=== PATIENT | male | born 1955 | race Caucasian/White ===

== ENCOUNTER → 2016-03-29 | Outpatient (CLI) | payer BC ==
[~2016-03-29] MED LIST: ALBU18002 INH; ASPI-435 PO; CETI10TA84 PO; CLBPO15 TOP; COEN150C PO; COLE1TAB PO; DICL-201 PO; DICL1GEL12 TOP; EPP3/2 IM; EZET10TA63 PO; FLUT0.15 NAE; FLVHFA110 INH; LORA-741 PO; LOSA1TAB38 PO; METO1TAB69 PO; MISC1CAP58 PO; MULT-506 PO; NTRGSL/4 UT; OMEG10007 PO; PSEU60TA80 PO; RANI150T3 PO; ROSU40TA PO; VALA1TAB2 PO; [UNRECOGNIZED DRUG - CODE] PO
--- NOTE | 2016-03-29 11:09 | DIAGNOSTIC IMAGING REPORT ---
RIGHT KNEE 4 VIEWS INCLUDING BILATERAL STANDING AP VIEWS CLINICAL HISTORY: Right knee pain COMPARISON: None. DISCUSSION: The standing AP views reveal marked narrowing of the medial joint compartment of the right knee and moderate narrowing of the medial joint compartment of the left knee. No acute fractures are visualized. There are dorsal patellar spurs. No destructive lesions are evident. There is no evidence of significant joint effusion. IMPRESSION: 1. No acute fractures 2. Moderately advanced osteoarthritic changes. Electronically signed by: Jefferson Penaloza M.D. 03/29/2016 11:08 AM Dictated Date/Time: 03/29/2016 11:06 AM
== END | disposition home or self-care (01) ==
LOC: C.RDSM 13:42
PROVIDERS: ATTEND Physical Medicine & Rehabilitation Sports Medicine
DX: M25.561 Pain in right knee (principal); M17.31 Unilateral post-traumatic osteoarthritis, right knee

== ENCOUNTER → 2016-04-11 | Outpatient (CLI) | payer BC ==
--- NOTE | 2016-04-12 06:36 | SPLIT NIGHT TECHNICIAN REPORT ---
[facility] Split Night Polysomnogram - Surveillance Inspector Report Study date: 04/11/2016 Referring Physician: Savanna BARON M.D. Name: ROBYN KUNZ Surveillance Inspector: ELIANA Kaye. Date of : 1955 Height: 60 years, Height 5' 2" Sex: Male Weight: 272 lbs Age: 60 Neck Circum: 18.5 inches BMI: Medications: 49.74 COLESTIPOL HCL 1 G, TOPROL XL 100 MG, CRESTOR 40 MG, DIOVAN 160 MG, FLOVENT HFA 110 MCG/ACT, AUTOINJECTOR 0.3 MG, FLONASE 50 MCG/ACT, ZETIA 10 MG, ZANTAC 150 MG, NITROSTAT 0.4 MG, VOLTAREN 75 MG, ATIVAN 1 MG, CO Q10 100 MG, PROAIR HFA 108 (90) BASE, VALTREX 1 G, ASPIRIN 81 MG, Patient History PATIENT HAD A SLEEP STUDY DONE IN 2004 AND WAS POSITIVE FOR CASH WITH AN AHI OF 22.8/HR. PATIENT WAS SETUP ON CPAP/BIPAP BUT WAS NOT ABLE TO TOLERATE THERAPY. HE ALSO HAS HISTORY OF INSOMNIA. HE IS HERE TODAY FOR A SPLIT-STUDY. ESS = 4 RM 6 Parameters Monitored NPSG: E1-M2, E2-M1, Fp1-M2, Fp2-M1, F3-M2, F4-M2, F4-M1, C3-M2, C4-M2, C4-M1, O1-M2, O2-M2, O2-M1, T3-M2, T4-M1, P3-M2, P4-M1, CHIN1, CHIN2, HR, EKG, Legs, PFLOW, SNOR, FLOW, CFLOW, Tidal Volume, THOR, ABDO, SpO2, PLTH, CPRESS, ETCO2 Wave, ETCO2, pH SLEEP SUMMARY DATA DIAGNOSTIC TREATMENT Lights Out: 10:00:28 PM 1:22:58 AM Lights On: 1:14:58 AM 5:48:58 AM Total Recording Time (TRT): 195.0 min. 266.5 min. Total Sleep Time (TST): 121.5 min. 206.0 min. NREM Time: 120.5 min. 120.0 min. REM Time: 1.0 min. 86.0 min. Sleep Period Time (SPT): 173.5 min. 241.5 min. Sleep Efficiency (SE): 62 % 77 % Sleep Latency: 21.0 min. 6.5 min. Arousal Index: 30.1 9.3 PAP Treatment Levels: 4, 5, 6, 7, 8, 9 * Optimal Pressure(s) SLEEP STAGING DATA DIAGNOSTIC TREATMENT Duration (min) TST % Duration (min) TST % Stage Wake: 73.0 min. -- 60.5 min. -- WASO: 52.0 min. -- 35.5 min. -- NREM: 120.5 min. 99 % 120.0 min. 58 % Stage N1: 11.0 min. 9 % 16.5 min. 8 % Stage N2: 96.5 min. 79 % 65.5 min. 32 % Stage N3: 13.0 min. 11 % 38.0 min. 18 % REM: 1.0 min. 1 % 86.0 min. 42 % POSITIONAL DATA Event Count Index Event Count Index Supine: 128 100.1 31 11.9 Supine NREM: 128 100.1 24 13.0 Supine REM: N/A N/A 7 9 Non-Supine: 42 56.2 7 8.5 Non-Supine NREM: 41 56.2 1 6.3 Non-Supine REM: 1 60.0 6 9.0 AROUSAL SUMMARY DATA: Event Count Index Event Count Index Apnea Arousals: 12 25.7 14 6.4 Hypopnea Arousals: 14 6.9 1 0.3 Snore Arousals: 14 6.9 6 1.7 PLM Arousals: 2 1.0 0 0.0 Non-Specific Arousals: 17 8.4 11 3.2 Total Arousals: 61 30.1 32 9.3 MYOCLONUS (PLM) Event Count Index Event Count Index PLM: 8 4.0 61 17.8 PLM AROUSAL: 2 1.0 0 0.0 PLM W/O AROUSAL 8 4.0 61 17.8 PLM W/RESP EVENT 1 0.0 0 0.0 MYOCLONUS (PLM) Event Count Index Event Count Index LM: 5 17.3 13 3.8 LM AROUSAL: 5 2.5 1 0.3 LM W/O AROUSAL LM W/RESP EVENT LM NON SPECIFIC 27 13.3 73 21.3 HEART RATE DATA DIAGNOSTIC TREATMENT Sleep (bpm): 58 54 REM (bpm): 90 92 NREM (bpm): 92 93 Tachycardia Count: 0 0 Tachycardia Duration: 0.00 0 Bradycardia Count: 0 0 Bradycardia Duration: 0.00 0 DIAGNOSTIC PORTION TREATMENT PORTION RESPIRATORY DATA Event Count Index Event Count Index AHI: -- 84.0 -- 11.1 RDI: -- 84.0 -- 11 Obstructive Apnea: 47 23.2 0 0.0 Central Apnea: 2 1.0 22 6.4 Mixed Apnea: 3 1.5 0 0.0 Hypopnea: 118 58.3 16 4.7 RERA: 0 0.0 0 0.0 Total Apneas: 52 25.7 22 6.4 RESPIRATORY DATA REM NREM SLEEP REM NREM SLEEP Supine Position: Obstructive Apneas: N/A 36 36 0 0 0 Central Apneas: N/A 1 1 0 22 22 Mixed Apneas: N/A 2 2 0 0 0 Hypopneas: N/A 89 89 7 2 9 RERA N/A 0 0 0 0 0 Total Supine Events: N/A 128 128 7 24 31 Supine AHI: N/A 100.1 100.1 9 13.0 11.9 Supine RDI: N/A 100.1 100.1 9.1 13.0 11.9 REM NREM SLEEP REM NREM SLEEP Non-Supine Position: Obstructive Apneas: 0 11 11 0 0 0 Central Apneas: 1 0 1 0 0 0 Mixed Apneas: 0 1 1 0 0 0 Hypopneas: 0 29 29 6 1 7 RERA 0 0 0 0 0 0 Total Supine Events: 1 41 42 6 1 7 Supine AHI: 60.0 56.2 56.2 9.0 6.3 8.5 Supine RDI: 60.0 56.2 56.2 9.0 6.3 8.5 OXYGEN DESTAURATION DATA: Event Count Index Event Count Index REM Desaturations: 0 0.0 14 9.8 NREM Desaturations: 159 79.2 21 10.5 SNORE DATA DIAGNOSTIC TREATMENT Snore Time: 15.6 1:29:28 AM Snore TST%: 6 1 Snore Arousal Count: 14 6 Snore Arousal Index: 6.9 1.7 Desaturation Event Summary: Minimum %SpO2 Event Count Mean/Min/Max Duration(sec.) Desaturation Index % Time In Bed > 90 245 21.6 / 7.5 / 73.7 39.9 81.7 86 - 90 18 17.8 / 8.8 / 32.8 13.2 18.1 81 - 85 0 N/A 0.0 0.1 76 - 80 0 N/A 0.0 0.0 71 - 75 0 N/A 0.0 0.0 66 - 70 0 N/A 0.0 0.0 61 - 65 0 N/A 0.0 0.0 56 - 60 0 N/A 0.0 0.0 51 - 55 0 N/A 0.0 0.0 < 50 0 N/A 0.0 0.0 OXYGEN SATURATION DATA DIAGNOSTIC TREATMENT SpO2 Mean Sleep: 92 % 92 % SpO2 Mean REM: 90 % 92 % SpO2 Mean NREM: 92 % 93 % SpO2 Minimum Sleep: 86 % 85 % SpO2 Minimum REM: 89 % 86 % SpO2 Minimum NREM: 86 % 85 % Time Below 90% (TST): 17.2 7.7 Time Below 88% (TST): 1.2 1.1 Total REM NREM Awake <50% 0.0 min. 0.0 min. 0.0 min. 0.0 min. 51 - 60% 0.0 min. 0.0 min. 0.0 min. 0.0 min. 61 - 70% 0.0 min. 0.0 min. 0.0 min. 0.0 min. 71 - 80% 0.2 min. 0.0 min. 0.0 min. 0.2 min. 81 - 90% 82.1 min. 14.0 min. 47.0 min. 21.2 min. 91 - 100% 368.0 min. 73.0 min. 193.3 min. 101.7 min. Average 92 92 92 93 Minimum SpO2 75 86 85 75 Desaturation Event Index 32.3 9.7 44.9 25.3 # Desat. Events below 89% 89 6 58 25 Time(%) with Saturation below 89% 3.4 0.4 1.8 1.3 Time(min.) with Saturation below 89% 15.5 1.7 7.9 5.9 Recording Surveillance Inspector Comments: Mr. Kunz slept in the supine and left positions. PVC's and PAC's noted. Leg movements noted. No bruxism noted. Snoring was noted and scored as a 2 on a scale of 1 through 5. (0=no snoring, 5=snoring loud enough to be heard through a closed door or down the eric way) At 1:14 am Mr. Kunz has met specific Split-Night criteria during the diagnostic portion of this study. CPAP was initiated at +4 CMH2O and up-titrated to an optimal level of +9 CMH2O, which nearly eliminated all respiratory events and snoring. A Resmed Elena FX nasal pillows size small mask was used during titration Mr. Kunz awoke to use the restroom 1 time during the night. Mr. Kunz stated I slept as well as I do when I am in my own bed. The final report will be interpreted and signed by a sleep physician. The completed physician report will then be placed in the patient medical record. Therapy Event: Therapy (cm H20) 0 4 5 6 7 8 9 Total Time at Pressure (min.) 194.5 36.4 9.8 11.8 39.2 91.5 77.2 TST at Pressure (min.) 121.5 9.9 6.3 3.8 39.2 88.5 58.2 # Periods 1 1 1 1 1 1 1 Sleep Onset (min.) 21.0 6.5 0.0 0.0 0.0 0.0 0.0 REM Onset (min.) 130.0 N/A N/A N/A 6.0 0.0 0.0 Sleep Efficiency % 62 27 64 32 100 96 75 Wakefulness (%) 37.5 72.7 35.7 67.7 0.0 3.3 24.6 Wakefulness (min.) 73.0 26.5 3.5 8.0 0.0 3.0 19.0 NREM 1 (%) 5.7 24.7 30.6 8.5 0.0 2.7 1.3 NREM 1 (min.) 11.0 9.0 3.0 1.0 0.0 2.5 1.0 NREM 2 (%) 49.6 2.6 33.7 23.8 15.2 32.2 29.8 NREM 2 (min.) 96.5 0.9 3.3 2.8 6.0 29.5 23.0 NREM 3 (%) 6.7 0.0 0.0 0.0 0.0 35.0 7.8 NREM 3 (min.) 13.0 0.0 0.0 0.0 0.0 32.0 6.0 REM (%) 0.5 0.0 0.0 0.0 84.8 26.8 36.5 REM (min.) 1.0 0.0 0.0 0.0 33.3 24.5 28.2 # Arousals 61 10 6 2 0 7 7 Arousal Index 30.1 60.4 57.1 31.5 0.0 4.7 7.2 # Snore 878 2 2 0 11 64 23 Snore Index 433.6 12.1 19.0 0.0 16.8 43.4 23.7 AHI 84.0 84.6 85.7 15.8 9.2 4.1 2.1 AHI Supine 100.1 84.6 85.7 0.0 N/A 4.4 2.1 AHI Non-Supine 56.2 N/A N/A 16.9 9.2 0.0 N/A NREM AHI 84.1 84.6 85.7 15.8 0.0 0.0 2.0 REM AHI 60.0 N/A N/A N/A 10.8 14.7 2.1 RDI 84.0 84.6 85.7 15.8 9.2 4.1 2.1 # Obstructive 47 0 0 0 0 0 0 # Central Ap 2 14 8 0 0 0 0 # Mixed 3 0 0 0 0 0 0 # Hypopneas 118 0 1 1 6 6 2 RERAS 0 0 0 0 0 0 0 Total Respiratory Events 170 14 9 1 6 6 2 Time Below SpO2 89.00% (min.) 6.4 0.6 1.0 0.0 0.9 0.8 0.0 Mean NREM SpO2 (%) 92 93 92 91 91 92 94 Mean REM SpO2 (%) 90 N/A N/A N/A 91 92 93 Mean Sleep SpO2 (%) 92 93 92 91 91 92 94 Min NREM SpO2 (%) 86 85 85 89 90 90 92 Min REM SpO2 (%) 89 N/A N/A N/A 86 88 91 Position Supine (min.) 76.7 9.9 6.3 0.3 0.0 81.8 58.2 Position Non-supine (min.) 44.8 0.0 0.0 3.5 39.2 6.7 0.0 LM Index Sleep 21.2 0.0 0.0 0.0 3.1 46.1 4.1 LM Index NREM 21.4 0.0 0.0 0.0 10.1 59.1 0.0 LM Index REM 0.0 N/A N/A N/A 1.8 12.2 8.5 Mean Heart Rate (bpm) 58 54 54 52 58 54 53 Min Heart Rate (bpm) 49 51 50 50 51 49 49
--- NOTE | 2016-04-26 16:55 | POLYSOMNOGRAPH REPORT ---
REFERRING PERSON: Dr. Christine Jean. STRAW HAT WASHER OPERATOR: Donato Cuevas. Mr. Kunz is a 60-year-old male who has previously been diagnosed with obstructive sleep apnea. In 2004, his AHI was 22.8. He was set up on CPAP, but was unable to tolerate therapy. He has a history of continued snoring and insomnia. He is sent to the sleep lab for a split night sleep study. [place] Sleepiness Scale score on the evening of this study is 4. BMI is 49.74. Following the technical and digital specifications of the [employer] (AASM) a standard diagnostic polysomnogram was performed monitoring EEG, EOG, EMG (chin and leg deviations), oxygen saturation, body position, digital video, respiratory effort and airflow. The sleep Stage and event scoring was based on the AASM Manual for the Scoring of Sleep and Associated Events 2007 edition. Apneas are defined as a drop in the peak thermal sensor excursion by >90% of baseline for at least 10 seconds. Hypopneas were scored using the 4% oxygen desaturation rule (4A-[employer]ic[employer]) and a decrease in the nasal pressure excursions by >30% of baseline for at least 10 seconds. Respiratory effort-related arousal (RERA's) is defined as a sequence of breaths lasting at least 10 seconds characterized by increasing respiratory effort or flattening of the nasal pressure waveform leading to an arousal from sleep when the sequence of breaths does not meet criteria for an apnea or hypopnea. Apnea Hypopnea index (AHI) is defined as the number of apneas and hypopneas occurring in an hour of sleep. Respiratory disturbance index (RDI) is defined as the number of apneas, hypopneas, and RERA's occurring in an hour of sleep. Mr. Kunz did in fact qualify for a split night sleep study. He was observed for 121.5 minutes of sleep time. During that time, he had 9% N1 sleep, 79% N2 sleep, 11% N3 sleep, and 1% REM sleep. There were 61 cortical arousals from sleep. 17 of these arousals were nonspecific, 2 were due to periodic limb movements of sleep and 14 were due to snoring and the remaining 26 were due to respiratory events. There were 8 periodic limb movements during observation, 2 of which resulted in arousals. Mean saturation during observation was 92% with desaturations to 86% with a respiratory event. There were 47 obstructive apneas, 2 central apneas and 3 mixed apneas during the diagnostic portion of this test. Additionally, there were 118 hypopneas. Apnea-hypopnea index was 84 consistent with very severe sleep apnea. Therefore, at 1:15 a.m., this patient was started on CPAP therapy. He chose a small FX nasal pillow mask for his titration. He was titrated from a CPAP pressure of 4 to a CPAP pressure of 9 over the remainder of the night. Increasing pressures prevented apneas, hypopneas and arousals. A positive airway pressure did initially caused central apneas in this patient, but as pressures were increased these abated. He was observed on a pressure of 9 for 58.2 minutes of sleep time. During that time, the patient did have 28.2 minutes of REM sleep, some of which was supine REM. AHI and RDI were both 2.1 and there were no desaturations less than 89%. IMPRESSION AND PLAN: Successful split night sleep study in this patient with very severe sleep apnea. I would recommend that he be started on CPAP at a pressure of 9. A download from his machine can be reviewed in 1 month both to check compliance as well as apnea-hypopnea index and further pressure adjustments can occur at that time.
== END | disposition home or self-care (01) ==
LOC: C.NEUR 21:00
PROVIDERS: ATTEND Family Medicine
DX: G47.33 Obstructive sleep apnea (adult) (pediatric) (principal); E66.2 Morbid (severe) obesity with alveolar hypoventilation; R06.83 Snoring; R06.81 Apnea, not elsewhere classified

== ENCOUNTER → 2016-09-03 | Outpatient (CLI) | payer BC ==
--- NOTE | 2016-09-03 10:22 | DIAGNOSTIC IMAGING REPORT ---
RIGHT SHOULDER MIN 2 VIEWS CLINICAL HISTORY: Right shoulder pain. COMPARISON: Right shoulder radiographs July 15, 2008. FINDINGS: Alignment of the right shoulder is anatomic. There is no fracture or suspicious lesion. Mild arthritis is noted involving the glenohumeral and acromioclavicular joints. There is a possible previous distal right clavicular resection. IMPRESSION: 1. No acute fracture. 2. Mild osteoarthritis of the right acromioclavicular and glenohumeral joints. Electronically signed by: Porfirio Kaiser M.D. 09/03/2016 10:21 AM Dictated Date/Time: 09/03/2016 10:20 AM
== END | disposition home or self-care (01) ==
LOC: C.RDSM 13:20
PROVIDERS: ATTEND Physician Assistant
DX: M19.011 Primary osteoarthritis, right shoulder (principal)

== ENCOUNTER → 2016-10-25 | Outpatient (CLI) | payer BC ==
[~2016-10-25] MED LIST changes: +GADAVIST IV PRN
--- NOTE | 2016-10-25 10:27 | DIAGNOSTIC IMAGING REPORT ---
FLUOROSCOPICALLY GUIDED RIGHT SHOULDER ARTHROGRAM PRIOR TO MRI CLINICAL HISTORY: Right shoulder pain. FLUOROSCOPY TIME: 16 seconds. PROCEDURE: The procedure, risks and benefits were discussed with the patient and informed written consent was obtained. The procedure was performed by Dr. Kaiser following a timeout. Skin overlying the right glenohumeral joint was prepped and draped in sterile fashion and local anesthesia was achieved with 1% lidocaine. Under intermittent fluoroscopic guidance, a 3 1/2 inch 22-gauge needle was directed into the right glenohumeral joint. Positioning within the joint space was confirmed with injection of a small amount of contrast. At this time, 11 cc of a mixture of 0.1 cc of gadolinium, 10 cc of normal saline and 10 cc of Optiray 300 was injected into the right glenohumeral joint. The needle was removed. The patient tolerated the procedure well and no immediate complications were evident. The patient was transported to MRI. IMPRESSION: Fluoroscopically guided right shoulder arthrogram prior to MRI. Electronically signed by: Porfirio Kaiser M.D. 10/25/2016 10:26 AM Dictated Date/Time: 10/25/2016 10:24 AM
--- NOTE | 2016-10-25 11:33 | DIAGNOSTIC IMAGING REPORT ---
RIGHT UPPER EXTREMITY JOINT W/ CLINICAL HISTORY: RIGHT SHOULDER PAIN Right pain TECHNIQUE: Multiaxial MRI acquisition post contrast arthrography COMPARISON STUDY: None FINDINGS: Signal characteristics of the osseous structures appear unremarkable. Moderate degenerative change of the acromioclavicular joint is present. There is moderate degenerative change of the glenohumeral joint. There is mild superior migration of the humeral shaft in relation to the acromion. There is a full-thickness tear of the supraspinatus tendon. Musculotendinous retraction of 3 cm is present. The infraspinatus tendon is intact. There is a small partial thickness tear of the subscapularis tendon. Glenoid labrum shows evidence for moderate degenerative substance loss throughout. There is no evidence for an acute labral tear. IMPRESSION: 1. Full-thickness tear supraspinatus tendon with musculotendinous retraction of 3 cm. 2. Small partial thickness tear subscapularis tendon. 3. Moderate degenerative substance change of the glenoid labrum with no acute labral tear. The above report was generated using voice recognition software. It may contain grammatical, syntax or spelling errors. Electronically signed by: Wai Barbosa M.D. 10/25/2016 11:32 AM Dictated Date/Time: 10/25/2016 11:27 AM
== END | disposition home or self-care (01) ==
LOC: C.MRIBC 09:31
PROVIDERS: ATTEND Physician Assistant
DX: M25.511 Pain in right shoulder (principal); S46.801A Unspecified injury of other muscles, fascia and tendons at shoulder and upper arm level, right arm, initial encounter; X58.XXXA Exposure to other specified factors, initial encounter; M19.011 Primary osteoarthritis, right shoulder

== ENCOUNTER → 2016-12-17 | Outpatient (CLI) | payer BC ==
[~2016-12-17] MED LIST changes: -COEN150C PO; +DVN/160 PO; -GADAVIST IV PRN; -LOSA1TAB38 PO; +METO100T44 PO; -METO1TAB69 PO; -MISC1CAP58 PO; -OMEG10007 PO; +OPTIRAY 320 IV PRN; -[UNRECOGNIZED DRUG - CODE] PO
--- NOTE | 2016-12-17 08:21 | DIAGNOSTIC IMAGING REPORT ---
CT SCAN OF THE CHEST WITH IV CONTRAST CLINICAL HISTORY: Abnormal chest x-ray. COMPARISON STUDY: Chest regressed dated 12/09/2016. TECHNIQUE: Following the IV administration of 109 cc of Optiray 320, CT scan of the thorax was performed from the thoracic inlet to the upper abdomen. Images are reviewed in the axial, sagittal, and coronal planes. IV contrast was administered without complication. A dose lowering technique was utilized adhering to the principles of ALARA. The examination is degraded by streak artifact from the right arm which could not be elevated above the chest. CT DOSE: 1192.63 mGy.cm FINDINGS: Thyroid: The right lobe of the thyroid gland is enlarged and heterogeneous. Low-attenuation nodules measure up to 2 cm. Thoracic aorta: There is atherosclerotic calcification of the thoracic aorta is normal in caliber and demonstrates bovine variant arch anatomy. No dissection is seen. Pulmonary vasculature: The pulmonary trunk is normal in caliber. There are no filling defects identified in the central pulmonary vessels to indicate pulmonary embolus. Note that this examination was not protocoled for evaluation of the pulmonary arteries. Heart: The heart is top normal in size and without pericardial effusion. There are coronary artery calcifications. Lungs and pleural spaces: There is no airspace consolidation or pleural effusion. The trachea and central airways are clear. There is a 7 mm left lower lobe nodule seen image #174. This likely corresponds to the radiographic the. A 6 mm pleural-based nodule is seen in the right lower lobe along the major fissure on image #125. Scattered calcified granulomas are identified. Mediastinum: There are scattered subcentimeter mediastinal lymph nodes. These are not pathologically enlarged by size criteria. Taylor: Clear. Axillae: There is no axillary lymphadenopathy. Upper abdomen: The liver is enlarged and steatotic. Partially visualized upper abdominal viscera is otherwise within normal limits. Skeletal structures: The skeletal structures are osteopenic. A hemangioma is noted in the body of T9. No lytic or blastic bony lesions are seen. IMPRESSION: 1. There is an indeterminant 7 mm left lower lobe pulmonary nodule, which likely corresponds to the radiographic abnormality seen on 12/09/2016. Follow-up as per the Fleischner criteria is recommended. See below. 2. An additional 6 mm pleural-based nodule is seen in the right lower lobe. This can also be reassessed at follow-up. 3. There is no airspace consolidation or pleural effusion. 4. Hepatomegaly and hepatic steatosis. 5. The thyroid gland is enlarged and multinodular. Follow-up with a dedicated thyroid ultrasound is recommended. Please refer to below summary of Fleischner criteria recommendations for follow-up of incidental CT nodules (Meliton Bernstein, Guidelines for management of small pulmonary nodules detected on CT scans: A statement from the Fleischner Society, Radiology 237: [phone].) SOLID NODULES Solitary nodule size: <6 mm * low risk patients: no follow-up needed * high risk patients: optional CT at 12 months Solitary nodule size: 6-8 mm * low risk patients: follow-up at 6-12 months, then consider further follow-up at 18-24 months * high risk patients: initial follow-up CT at 6-12 months and then at 18-24 months if no change Solitary nodule size: >8 mm * either low or high risk patients - consider follow-up CT at 3 months, and/or CT-PET, and/or biopsy Multiple nodules size: <6 mm * low risk patients: no routine follow-up * high risk patients: optional CT at 12 months Multiple nodules size: 6-8 mm * low risk patients: follow-up at 3-6 months, then consider further follow-up at 18-24 months * high risk patients: follow-up at 3-6 months, then at 18-24 months if no change Multiple nodules size: >8 mm * low risk patients: follow-up at 3-6 months, then consider further follow-up at 18-24 months * high risk patients: follow-up at 3-6 months, then at 18-24 months if no change Note: newly detected indeterminate nodule in persons 35 years of age or older. * low risk patients: minimal or absent history of smoking and/or other known risk factors * high risk patients: history of smoking or of other known risk factors (e.g. first degree relative with lung cancer, or exposure to asbestos, radon, uranium) * if a nodule up to 8 mm is partly solid or is ground glass further follow-up is required after 24 months to exclude possible slow growing adenocarcinoma (MAGALYS) SUBSOLID NODULES Solitary pure ground-glass nodule * nodule size <6 mm - no CT follow-up required * nodule size >=6 mm - follow-up CT at 6-12 months, then every 2 years until 5 years Solitary part-solid nodule * nodule size <6 mm - no CT follow-up required * nodule size >=6 mm - follow-up CT at 3-6 months. If unchanged, and solid component remains <6 mm, then annual follow-up for 5 years Multiple subsolid nodules * nodule size <6 mm - follow-up CT at 3-6 months, consider further follow-up at 2 and 4 years if stable * nodule size >=6 mm - follow-up CT at 3-6 months, subsequent management based on the most suspicious nodule(s) Electronically signed by: Ector Oquendo M.D. 12/17/2016 8:19 AM Dictated Date/Time: 12/17/2016 8:13 AM
== END | disposition home or self-care (01) ==
LOC: C.CTS 07:33
PROVIDERS: ATTEND Family Medicine
DX: R93.8 Abnormal findings on diagnostic imaging of other specified body structures (principal); R91.8 Other nonspecific abnormal finding of lung field; E04.2 Nontoxic multinodular goiter

== ENCOUNTER 2017-01-13 06:33 | Day surgery (SDC) | payer BC ==
[2016-11-23 12:31] VITALS: BMI 47.0
[2016-12-08 08:44] VITALS: BMI 48.0
--- NOTE | 2016-12-08 08:49 | PAT Medication Instructions ---
Service Date Dec 08, 2016. Current Home Medication List Albuterol Sulfate (Proair Respiclick), 2 PUFFS INH BID Aspirin (Aspirin 81), 1 TAB PO HS Cetirizine (Zyrtec), 10 MG PO QAM Clobetasol Propionate (Clobetasol Propionate), 1 APPLN TOP BID PRN for DRY SKIN Colestipol Hcl (Colestid), 2 TAB PO BID Diclofenac (Voltaren), 75 MG PO BID PRN for Pain Diclofenac Sodium (Topical) (Voltaren 1% Top Gel), 1 APPL TOP UD PRN for Pain Epinephrine (Epipen), 0.3 MG IM UD PRN for ALLERGIES Ezetimibe (Zetia), 10 MG PO HS Fluticasone Propionate (Flovent Hfa), 2 PUFFS INH BID Fluticasone Propionate (Nasal) (Flonase Allergy Relief), 2 SPRAY QUINTON QAM Lorazepam (Ativan), 0.5 MG PO UD PRN for PRIOR TO DENTAL PROCEDURES Metoprolol Succ (Toprol Xl) (Toprol-Xl ), 100 MG PO HS Multivitamin (Multivitamin), 1 TAB PO QAM Nitroglycerin (Nitrostat), 0.4 MG UT PRN PRN for Chest Pain Pseudoephedrine-Guaifenesin (Mucinex D), 1 TAB PO BID PRN for ALLERGIES Ranitidine Hcl (Zantac), 150 MG PO BID Rosuvastatin Calcium (Crestor), 40 MG PO HS Valacyclovir Hcl (Valtrex), 2 TAB PO UD PRN for OUTBREAK' Valsartan (Diovan), 160 MG PO HS Medication Instructions For Your Scheduled Surgery - Check with surgeon for instructions: Aspirin (Aspirin 81), 1 TAB PO HS - Check with surgeon for instructions: Diclofenac (Voltaren), 75 MG PO BID PRN for Pain Clobetasol Propionate (Clobetasol Propionate), 1 APPLN TOP BID PRN for DRY SKIN - Hold the following medications 24 hours prior to surgery: Valsartan (Diovan), 160 MG PO HS Colestipol Hcl (Colestid), 2 TAB PO BID Diclofenac Sodium (Topical) (Voltaren 1% Top Gel), 1 APPL TOP UD PRN for Pain Clobetasol Propionate (Clobetasol Propionate), 1 APPLN TOP BID PRN for DRY SKIN - Hold the following medications the morning of surgery: Ranitidine Hcl (Zantac), 150 MG PO BID Pseudoephedrine-Guaifenesin (Mucinex D), 1 TAB PO BID PRN for ALLERGIES Multivitamin (Multivitamin), 1 TAB PO QAM Lorazepam (Ativan), 0.5 MG PO UD PRN for PRIOR TO DENTAL PROCEDURES Cetirizine (Zyrtec), 10 MG PO QAM - Take the following medications the morning of surgery with a sip of water: Valacyclovir Hcl (Valtrex), 2 TAB PO UD PRN for OUTBREAK' (if needed) Nitroglycerin (Nitrostat), 0.4 MG UT PRN PRN for Chest Pain (if needed) Fluticasone Propionate (Flovent Hfa), 2 PUFFS INH BID Fluticasone Propionate (Nasal) (Flonase Allergy Relief), 2 SPRAY QUINTON QAM Epinephrine (Epipen), 0.3 MG IM UD PRN for ALLERGIES (if needed) Albuterol Sulfate (Proair Respiclick), 2 PUFFS INH BID - Take the following medications as scheduled the night before surgery: Valacyclovir Hcl (Valtrex), 2 TAB PO UD PRN for OUTBREAK' (if needed) Ranitidine Hcl (Zantac), 150 MG PO BID Rosuvastatin Calcium (Crestor), 40 MG PO HS Pseudoephedrine-Guaifenesin (Mucinex D), 1 TAB PO BID PRN for ALLERGIES (if needed) Nitroglycerin (Nitrostat), 0.4 MG UT PRN PRN for Chest Pain (if needed) Lorazepam (Ativan), 0.5 MG PO UD PRN for PRIOR TO DENTAL PROCEDURES (if needed) Metoprolol Succ (Toprol Xl) (Toprol-Xl ), 100 MG PO HS Fluticasone Propionate (Flovent Hfa), 2 PUFFS INH BID' Ezetimibe (Zetia), 10 MG PO HS Epinephrine (Epipen), 0.3 MG IM UD PRN for ALLERGIES (if needed) Albuterol Sulfate (Proair Respiclick), 2 PUFFS INH BID If you have any questions please call us at [phone] or [phone] or [phone]
[2016-12-08 09:37] LABS: MEAN CELL VOLUME 85.7 fL (80-100); MEAN CORPUSCULAR HEMOGLOBIN 28.6 pg (25-34); MEAN CORPUSCULAR HGB CONC 33.3 g/dl (32-36); MEAN PLATELET VOLUME 10.8 fL (7.4-10.4); PLATELET COUNT 191 K/uL (130-400); WHITE BLOOD COUNT 5.67 K/uL (4.8-10.8)
[2016-12-08 09:48] LABS: PROTHROMBIN TIME (PATIENT) 11.1 SECONDS (9.0-12.0)
--- NOTE | 2016-12-08 09:54 | DIAGNOSTIC IMAGING REPORT ---
CHEST PREADMISSION(PA/LAT) CLINICAL HISTORY: Preoperative chest COMPARISON STUDY: No previous studies for comparison. FINDINGS: The cardiac and mediastinal contours are normal. There is no focal pulmonary consolidation. There is no failure. There are no pleural effusions. There is a subtle 9 mm nodular opacity at the left lung base. This potentially represents a nipple shadow. A repeat study with nipple markers is recommended.[ IMPRESSION: 9 mm left lower lung zone nodule versus nipple shadow. A repeat study with nipple markers and shallow obliques is recommended. Electronically signed by: Jefferson Penaloza M.D. 12/08/2016 9:53 AM Dictated Date/Time: 12/08/2016 9:51 AM
[2017-01-05 09:06] VITALS: BMI 48.0
--- NOTE | 2017-01-06 11:50 | HISTORY & PHYSICAL EXAMINATION ---
DATE OF ADMISSION: 01/13/2017 CHIEF COMPLAINT: Right shoulder pain. HISTORY OF PRESENT ILLNESS: This 61-year-old white male presented to the office with complaints of right shoulder pain that has been ongoing for several months. Symptoms did develop earlier this summer. He has tried physical therapy as well as cortisone injection without improvement. Physical therapy actually seemed to make his shoulder worse. Right hand dominant. No numbness or tingling. He does get night pain. He denies any loss of motion but does have significant weakness. There is a history of previous right shoulder rotator cuff repair in 2004. X-ray and MRI have been obtained. He elects to proceed with shoulder arthroscopy, rotator cuff repair, possible open superior capsular reconstruction, subacromial decompression, and possible biceps tenotomy with possible allograft use in hopes of alleviating his pain. PAST MEDICAL HISTORY: Significant for previous [place] April 1983. History of angina, hypertension, elevated cholesterol, asthma, sleep apnea, use of CPAP, diabetes, osteoarthritis, GERD, obesity, seasonal allergies, and gout. PAST SURGICAL HISTORY: Right shoulder rotator cuff repair 2004, appendectomy 1966, colonoscopy, cardiac catheterization 1983. FAMILY HISTORY: Significant for heart disease, elevated lipids, and seizures. Mother and father have all had heart attacks. ALLERGIES: NKDA. KNOWN ALLERGY TO INSECTS WHICH CAUSE ANAPHYLAXIS. CURRENT MEDICATIONS: Albuterol inhaler, aspirin 81 mg, Zyrtec 10 mg, topical clobetasol 0.05% ointment, colestipol 1 mg, Voltaren 75 mg, EpiPen, Zetia 10 mg, fluticasone inhaler, Mucinex maximum strength 1200 mg, lorazepam 0.5 mg, metoprolol 100 mg, multivitamin, nitroglycerin 0.4 mg sublingual, Zantac 150 mg, Crestor 40 mg, valacyclovir 1 gram, and Diovan 160 mg. REVIEW OF SYSTEMS: Significant for above stated conditions, otherwise unremarkable. SOCIAL HISTORY: The patient is . Employed. No tobacco use, occasional ETOH use. PHYSICAL EXAMINATION: GENERAL: Well-developed, well-nourished middle-aged white male in no acute distress. Sitting on a chair. Alert and oriented. Obese. SKIN: Warm and dry with good turgor. No rashes or lesions. No ecchymosis or erythema. HEAD, EYES, EARS, NOSE, AND THROAT: Normocephalic, atraumatic. Eyes PERRLA, EOMI. Nares patent bilaterally without turbinate enlargement. Oropharynx without erythema or exudate. No lesions noted. Uvula midline. Oral mucosa moist. Good dentition. Dental caps are noted. HEART: Soft systolic ejection murmur noted at the left sternal border. No gallops or rubs. The patient states he was aware of the murmur recently. It was present as a child. LUNGS: Clear to auscultation bilaterally. No crackles, rhonchi or wheezing. Good air movement. ABDOMEN: Bowel sounds present x4, obese, soft, nontender to palpation. No organomegaly. No masses. MUSCULOSKELETAL: Right shoulder has no obvious asymmetry or deformity. He has focal discomfort with palpation over the subacromial space, proximal biceps tendon, deltoid, and rotator cuff insertion. He also has pain with palpation over the posterior rotator cuff musculature. Forward flexion of around 70 degrees, abduction to around 90 degrees. External rotation of around 10 degrees with his elbow at his side but unable to reach to belt line. Significant weakness is noted with resistive testing in all planes. Elbow exam is benign. Full motion at the elbow. NEUROLOGIC: Gross sensation is intact across the right arm via soft touch. Peripheral pulses are 2+. Cranial nerves II-XII are intact. STUDIES: MRI previously obtained shows large retracted rotator cuff tear. Degenerative findings were also present. IMPRESSION: Right shoulder rotator cuff tear with subacromial impingement. PLAN: Preoperative EKG, CBC, and PRP were ordered. Medical clearance has been requested from Dr. Mcdaniel and Dr. Faria. He will start therapy postop day #1. Case is being done at the hospital per anesthesia request. Call with any other concerns.
[~2017-01-13] VITALS: Ht 162.6 cm; Wt 126.8 kg
[~2017-01-13 06:33] MED LIST changes: +CEFAZOLIN 3000MG IV PUSH 15 ML IV SCH; +LACTATED RINGER'S 1000ML 1,000 ML IV SCH; +LACTATED RINGER'S 1000ML IV SCH; -OPTIRAY 320 IV PRN; +ROPIVACAINE 0.5% 5 MG/ML 30 ML VIAL ONE
[2017-01-13 07:05] VITALS: BP 162/81; PULSE 65; TEMP 37.1; O2SAT 94; Ht 162.6 cm; Wt 126.8 kg
--- NOTE | 2017-01-13 07:45 | History & Physical Bridge Note ---
H&P Re-Evaluation Bridge Note: I have examined the patient, reviewed the History & Physical and in the interval since the performance of the History & Physical I have noted the following changes of clinical significance:consent reviewed. No changes noted
[2017-01-13] MEDS ORDERED: ONDANSETRON INJ 2 MG/ML 2 ML VIAL ONE (07:46)
[2017-01-13] MEDS ORDERED: PROPOFOL IV EMULSION 10 MG/ML 20 ML VIAL IV ONE (07:46)
[2017-01-13] MEDS ORDERED: LIDOCAINE HCL 2% 2 ML VIAL (20MG/ML) ONE (07:46)
[2017-01-13] MEDS ORDERED: DEXAMETHASONE SOD INJ 4 MG/ML VIAL ONE (07:46)
[2017-01-13] MEDS ORDERED: MIDAZOLAM HCL 1 MG/ML 2ML VIAL ONE ×2 (07:46→07:47)
[2017-01-13] MEDS ORDERED: FENTANYL CITRATE INJ 50 MCG/1 ML 2 ML VIAL ONE ×2 (07:46→08:40)
[2017-01-13] MEDS ORDERED: SODIUM CHLORIDE 0.9% 1000ML 1,000 ML IV SCH (07:48)
--- NOTE | 2017-01-13 07:48 | Discharge Instructions ---
Discharge Instructions Date of Service Jan 13, 2017. Visit Reason for Visit: Right Shoulder Rotator Cuff Tear Discharge Discharge Diagnosis / Problem: same Discharge Goals Goal(s): Decrease discomfort, Improve function, Increase independence Medications Stopped Medications Name(s): abiola Restart Stopped Medication(s): use all scripts as directed Activity Recommendations Activity Limitations: as noted below Lifting Limitations: until after follow-up appointment Exercise/Sports Limitations: until after follow-up appointment May Resume Sexual Activity: when tolerated Shower/Bathe: keep incision dry Driving or Machine Use: Anesthesia . Post Anesthesia Instructions: If you have had General Anesthesia or IV Sedation: * Do not drive today. * Resume driving when surgeon permits. * Do not make important decisions or sign legal documents today. * Call surgeon for: 1. Temperature elevations greater than 101 degrees F. 2. Uncontrollable pain. 3. Excessive bleeding. 4. Persistent nausea and vomiting. 5. Medication intolerance (nausea, vomiting or rash). * For nausea and vomiting use only clear liquids such as: tea, soda, bouillon until nausea subsides, then gradually increase diet as tolerated. * If you have any concerns or questions, call your surgeon's office. If physician is unavailable and it is an emergency, call 911 or go to the nearest emergency room. . Instructions / Follow-Up Instructions / Follow-Up The following are instructions to follow after "Shoulder Surgery" including, Acromioplasty, Rotator Cuff Repair and Instability Surgery ACTIVITY RECOMMENDATIONS: * Minimize activity after surgery. * No excessive walking, jogging, sports or laboring. * Return to activity is individualized depending on the patient and type of surgery. * Driving is not permitted until at least your first post operative visit. Please ask your doctor when it is safe to resume driving. * Expect increased discomfort with increased activity. Continue to ice the shoulder as needed. SCHOOL/WORK RECOMMENDATIONS: * You may return to sedentary work or school when you are feeling more comfortable. This is usually 3-7 days after surgery. MEDICATIONS: * You will have a prescription for pain medication and an anti-inflammatory medication after surgery. * Use the pain medication for severe pain and the anti-inflammatory for less severe pain. Once the pain medication has run out, try to use the anti-inflammatory medication. If this is not effective, contact the office for assistance. * The pain medication may cause nausea, constipation and drowsiness. You should see how they affect you before driving or similar activity. * The anti-inflammatory medication may cause stomach upset and bleeding. If this occurs let your doctor know immediately . * Take a stool softener like Colace or a laxative like Senokot to prevent constipation. DIET: * Resume previous diet. SPECIAL CARE: ICE: You have the option of an ice cooler, gel packs or ice bags. * If you have an ice cooler, refer to the instructions for that device. The ice cooler may be used continuously. * If you do not have an ice cooler, you will need to use ice bags or gel packs. Do not apply ice directly to the skin. Use a thin dressing or laurence shirt between the skin and ice bag. Apply ice for 20-30 minutes and repeat every 2-4 hours. This is especially important for the first 7-10 days after surgery. Once the pain improves, use ice as needed. ELEVATION: * You may be more comfortable sleeping in an upright position. Use the sling to elevate your arm. DRESSING: * Your dressing will be changed at your first therapy appointment approximately 4-5 days after surgery. Band-aids, tape strips or gauze may be applied. You may then change your dressing daily. * Reapply dressing followed by the EBIce cooling pad (if chosen) and then the sling. * Always wash your hands prior to touching the incision area. * Once the stitches are removed, you may leave the wound open to air or cover with gauze. * Expect some bloody drainage for the first few days after surgery. * Leave the tape strips, if present, in place for 5-7 days. * Band-aids and gauze may be changed daily. * There may be a gauze pad in your armpit area. This can be changed daily or replaced by a dry washcloth. SLING/BRACE: * You will need to use a sling or brace after surgery. The length of time the sling is used is dependent upon the type of surgery performed. * Arthroscopic Acromioplasty requires use of the sling for 2-4 weeks for comfort. * Labral procedures and Rotator Cuff Repairs require use of the sling for a longer period of time. Please check with your doctor prior to discontinuing the sling. BATHING: * You may shower or sponge-bathe immediately after surgery. The post operative shoulder dressing is mostly water-tight. You may shower right over this dressing, but be reasonably careful not to get the gauze or incision wet. * Once the dressing has been changed on the fourth or fifth day after surgery, you may shower and get the incision wet. * Wash with regular soap and water. * Do not bathe (submerge the incision), soak, swim or use a hot tub until the incision is completely healed over with normal skin and the doctor has given the OK to proceed. * There is no need to apply any ointments, powders or salves to your incision. * Do not apply alcohol or hydrogen peroxide directly to the incision. * Diluted peroxide (50:50 mixture with sterile saline) may be used to clean dried blood from around the incision area. THERAPY: * You will begin therapy four or five days after surgery. * Organized therapy with the therapist is important for the first 2-4 months after surgery depending on the type of procedure. During that time you will attend therapy 1-3 times per week. * You will also need to do daily exercises for range of motion and strength as instructed. * Patients who have a Capsular Shift Procedure will need to abide by temporary range of motion limitations. * Patients having Rotator Cuff Surgery are not allowed to actively lift their arms until 4-6 weeks after surgery. * Please check with your doctor regarding appropriate motion restrictions. FOLLOW UP VISIT: * If not already scheduled, please call the office at to schedule a follow-up appointment for 10 days after surgery and monthly thereafter. Diet Recommendations Recommended Home Diet: resume previous diet Procedures Procedures Performed: rotator cuff repair Pending Studies Studies pending at discharge: no Medical Emergencies . Who to Call and When: Medical Emergencies: If at any time you feel your situation is an emergency, please call 911 immediately. . Non-Emergent Contact Non-Emergency issues call your: Specialist Call Non-Emergent contact if: temperature is above 101.5, wound has increased drainage, wound has increased redness, wound has increased pain . . "Provider Documentation" section prepared by Jose F Rios. .
[2017-01-13] MEDS ORDERED: SUCCINYLCHOLINE CHLORIDE 20 MG/ML 10 ML VIAL IV ONE (07:54)
[2017-01-13] MEDS ORDERED: ROCURONIUM BROMIDE 10 MG/ML 5 ML VIAL IV ONE (07:54)
[2017-01-13] MEDS ORDERED: KETOROLAC TROMETHAMINE 30 MG/ML VIAL IV. PRN (08:00)
[2017-01-13] MEDS ORDERED: HYDROCODONE/ACETAMOPHEN 5/325MG TAB PO PRN (08:00)
[2017-01-13] MEDS ORDERED: ONDANSETRON INJ 2 MG/ML 2 ML VIAL IV PRN ×2 (08:00→09:00)
[2017-01-13] MEDS ORDERED: BUPIVACAINE/EPINEPHRINE 0.5% MPF 1:200,000 30 ML VIAL ONE (08:12)
[2017-01-13] MEDS ORDERED: EpINEphrine HCL INJ 1 MG/ML 5ML SYRINGE ONE (08:12)
[2017-01-13] MEDS ORDERED: EpHEDrine SULFATE INJ 50 MG/ML AMP IV PRN (09:00)
[2017-01-13] MEDS ORDERED: HYDROmorphone INJ 2 MG/ML SYR/VIAL IV PRN (09:00)
[2017-01-13] MEDS ORDERED: PHENYLEPHRINE 100MCG/ML 5ML SYR IV PRN (09:00)
[2017-01-13] MEDS ORDERED: ATROPINE SULFATE 0.1 MG/ML 5ML SYR IV PRN (09:00)
--- NOTE | 2017-01-13 09:23 | [facility] Post Operative Brief Note ---
Immediate Operative Summary Operative Date Jan 13, 2017. Pre-Operative Diagnosis Right Shoulder Rotator Cuff Tear Post-Operative Diagnosis Same as Preop Procedure(s) Performed rotator cuff repair large/SAD/EUA Surgeon Dr. Rios Director Of Global Marketing Surgeon(s) Mane Moraes PA-C Estimated Blood Loss trace Findings large mobile cuff tear Fluids (cc crystalloids) 1000cc Specimens None per Surgeon Drains none Anesthesia GET/block Complication(s) None Disposition Recovery Room / PACU
--- NOTE | 2017-01-13 09:47 | OPERATIVE REPORT ---
DATE OF OPERATION: 01/13/2017 PREOPERATIVE DIAGNOSIS: Rotator cuff tear, right shoulder with impingement. POSTOPERATIVE DIAGNOSIS: Same. Large cuff tear. OPERATION PERFORMED: 1. Exam under anesthesia. 2. Diagnostic arthroscopy. 3. Revision arthroscopic SAD. 4. Repair large rotator cuff tear with retraction and mobile cuff. SURGEON: Dr. Rios. VETERANS' COUNSELOR: Mane Moraes PA-C. No resident or fellow available. PERIOPERATIVE SITUATION: Medically cleared male with intractable shoulder pain. Physical exam, x-ray, and MRI scan consistent with a large cuff tear. At this point in time, he is cleared surgically, had some issues that needed to be cleared. He is ready for surgery. CONSENT: Obtained and reviewed, no issues, see list. OPERATION AND FINDINGS: PROCEDURE: The patient appropriately identified, site verified, consent verified, 3 grams of Ancef confirmed as being given. The right upper extremity was examined revealing full motion and no instability. He was then carefully placed in a beach chair position and right upper extremity prepped and draped in usual routine fashion. Again, timeout performed. Posterolateral portal made 2 cm medial and inferior to posterolateral tip of the acromion and anterior portal made after the scope was placed and localized with a needle. Inspection of the joint revealed some degenerative disease of the glenoid which was incidentally debrided, some labral tattering which was incidentally debrided. The large cuff tear was identified. The biceps was already detached, this was the long head. The subacromial space was then entered. A limited bursectomy performed and the limited subacromial decompression performed. The AC joint was not touched. Cuff was quite mobile and was easily placed. The insertion site was then all debrided of soft tissue with the thermal device and the shaver down to bleeding bone. Care was taken to preserve the cortex. Total of 5 sutures were utilized, 3 anchors all 4.75 and they were placed, sutures placed and pulled out of the anterior portal from anterior to posterior. Sutures were placed and 2 anchors placed 4.75 posterior first, anterior second. Once the arm was rotated there was an area posterolaterally that could also be repaired. This was fixed with another additional stitch and 4.75 anchor so in addition, there were 5 sutures and 3 anchors all 4.75. They were all made by [employer]. The arm was then put through range of motion and the cuff was stable. Looking from the lateral portal and posterolaterally some minor bursectomy was completed, there was good decompression. The procedure was then terminated. All instruments and fluid removed. The portals closed with 4-0 nylon, dressed with Xeroform, 4 x 4 gauze, ABD pads and Ioban dressing. Estimated blood loss was trace. Crystalloid was 1000 mL. No pathology pending. I attest to the content of the Intraoperative Record and any orders documented therein. Any exception s are noted below.
[2017-01-13] MEDS ORDERED: FLUMAZENIL 0.1 MG/1 ML 10 ML VIAL IV ONE (09:48)
--- NOTE | 2017-01-13 09:53 | [facility] Operative Report ---
Operative Report Operative Date Jan 13, 2017. Pre-Operative Diagnosis Right Shoulder Rotator Cuff Tear Post-Operative Diagnosis Same as Preop Procedure(s) Performed rotator cuff repair large/SAD/EUA Surgeon Dr. Rios Skin Lap Bonder Surgeon(s) Mane Moraes PA-C Estimated Blood Loss trace Findings Right shoulder large rotator cuff tear and degenerative changes Fluids 1000cc Specimens None per Surgeon Drains none Anesthesia GET/block Complication(s) None Disposition Recovery Room / PACU Indications This 61-year-old white male presented the office with complaints of right shoulder pain, loss of strength, loss of motion. He had tried conservative care measures including steroid injection and physical therapy. He elected to proceed with surgical intervention after being educated about potential risks and outcomes. Preoperative imaging was obtained. Description of Procedure Patient was administered a regional block and then taken to the operating room where he was given general anesthesia. He was prepped and draped in usual sterile fashion. Please see Dr. Rios's operative report for specifics of the procedure. I was present for the entire case from initial patient positioning through final wound closure. Assistance was provided in patient positioning, arthroscopy, hardware placement, and final wound closure. Patient was taken to the recovery room in satisfactory condition. I attest to the content of the Intraoperative Record and any orders documented therein. Any exceptions are noted below.
[2017-01-13 10:45] VITALS: BP 138/59; PULSE 66; TEMP 36.6; O2SAT 94
[2017-01-13 11:15] VITALS: BP 132/52; PULSE 60; O2SAT 96
[2017-01-13 11:45] VITALS: BP 132/65; PULSE 62; TEMP 36.2; O2SAT 94
--- NOTE | 2017-01-13 13:32 | Anesthesiology Progress Note ---
Anesthesia Post Op Note Date & Time Jan 13, 2017 at 13:31 Vital Signs Pain Intensity: 3 Vital Signs Past 12 Hours Date Time Temp Pulse Resp B/P (MAP) Pulse Ox O2 Delivery O2 Flow Rate FiO2 01/13/17 11:45 36.2 62 18 132/65 94 Room Air 01/13/17 11:15 60 16 132/52 96 Nasal Cannula 2 01/13/17 10:45 36.6 66 16 138/59 94 Nasal Cannula 2 01/13/17 10:30 36.2 66 16 116/56 94 Nasal Cannula 2 01/13/17 10:20 36.2 69 16 122/60 91 Room Air 01/13/17 10:10 69 16 123/42 97 Oxymask 15 01/13/17 10:00 69 16 138/74 92 Oxymask 15 01/13/17 09:50 70 16 132/64 92 Oxymask 15 01/13/17 09:43 36.5 89 16 159/87 93 Oxymask 15 01/13/17 07:05 37.1 65 18 162/81 (108) 94 Room Air Notes Mental Status: alert / awake / arousable, participated in evaluation Pt Amnestic to Procedure: Yes Nausea / Vomiting: adequately controlled Pain: adequately controlled Airway Patency, RR, SpO2: stable & adequate BP & HR: stable & adequate Hydration State: stable & adequate Anesthetic Complications: no major complications apparent
== END 2017-01-13 12:20 | disposition home or self-care (01) ==
LOC: C.ACU 06:33
PROVIDERS: ATTEND Physical Medicine & Rehabilitation Sports Medicine
DX: M75.101 Unspecified rotator cuff tear or rupture of right shoulder, not specified as traumatic (principal); M25.811 Other specified joint disorders, right shoulder; E11.9 Type 2 diabetes mellitus without complications; I25.10 Atherosclerotic heart disease of native coronary artery without angina pectoris; E66.01 Morbid (severe) obesity due to excess calories; Z68.42 Body mass index [BMI] 45.0-49.9, adult; G47.33 Obstructive sleep apnea (adult) (pediatric); I25.2 Old myocardial infarction; I10 Essential (primary) hypertension; E78.00 Pure hypercholesterolemia, unspecified; J45.909 Unspecified asthma, uncomplicated; M19.90 Unspecified osteoarthritis, unspecified site; K21.9 Gastro-esophageal reflux disease without esophagitis; Z98.890 Other specified postprocedural states; Z79.82 Long term (current) use of aspirin; Z79.899 Other long term (current) drug therapy; Z90.89 Acquired absence of other organs; Z82.49 Family history of ischemic heart disease and other diseases of the circulatory system

== ENCOUNTER → 2017-02-28 | Outpatient (CLI) | payer BC, OTHER ==
[~2017-02-28] MED LIST changes: -CEFAZOLIN 3000MG IV PUSH 15 ML IV SCH; -LACTATED RINGER'S 1000ML 1,000 ML IV SCH; -LACTATED RINGER'S 1000ML IV SCH; -ROPIVACAINE 0.5% 5 MG/ML 30 ML VIAL ONE
== END | disposition home or self-care (01) ==
LOC: C.RDSM 12:00
PROVIDERS: ATTEND Physical Medicine & Rehabilitation Sports Medicine
DX: S46.011D Strain of muscle(s) and tendon(s) of the rotator cuff of right shoulder, subsequent encounter (principal); X58.XXXD Exposure to other specified factors, subsequent encounter; M12.811 Other specific arthropathies, not elsewhere classified, right shoulder

== ENCOUNTER → 2017-04-05 | Outpatient (CLI) | payer OTHER ==
--- NOTE | 2017-04-05 13:33 | DIAGNOSTIC IMAGING REPORT ---
(CHEST) THORAX WITHOUT CT DOSE: 652.63 mGycm HISTORY: Cough. Follow-up pulmonary nodule. TECHNIQUE: Multiaxial CT images of the chest were performed without contrast. A dose lowering technique was utilized adhering to the principles of ALARA. COMPARISON: Chest CT 12/17/2016. FINDINGS: No change in the enlarged and heterogeneous right thyroid lobe measuring up to 4 cm. This likely contains multiple nodules. Mild calcified plaque within the normal caliber thoracic aorta. The heart is normal in size. No pleural or pericardial effusions. No mediastinal or hilar lymphadenopathy. Limited views of the upper abdomen demonstrate a normal liver, spleen, and adrenal glands. No suspicious lytic or blastic osseous lesions. No pneumothorax. The central airways are patent. Calcified granuloma within the left upper lobe on image 116. No change in the 6 mm nodule within the left lower lobe on image 160. Stable 5 mm nodule within the right lower lobe on image 126. Stable hemangioma at T9. IMPRESSION: Stable pulmonary nodules as described above with the largest in the left lower lobe measuring 6 mm. Please refer the chart below for recommended follow-up. Please refer to below summary of Fleischner criteria recommendations for follow-up of incidental CT nodules (Meliton Bernstein, Guidelines for management of small pulmonary nodules detected on CT scans: A statement from the Fleischner Society, Radiology 237: [phone].) SOLID NODULES Solitary nodule size: <6 mm * Low risk patients: no follow-up needed * high risk patients: optional CT at 12 months Solitary nodule size: 6-8 mm * Low risk patients: follow-up at 6-12 months, then consider further follow-up at 18-24 months * high risk patients: initial follow-up CT at 6-12 months and then at 18-24 months if no change Solitary nodule size: >8 mm * either low or high risk patients - consider follow-up CT at 3 months, and/or CT-PET, and/or biopsy Multiple nodules size: <6 mm * Low risk patients: no routine follow-up * high risk patients: optional CT at 12 months Multiple nodules size: 6-8 mm * Low risk patients: follow-up at 3-6 months, then consider further follow-up at 18-24 months * high risk patients: follow-up at 3-6 months, then at 18-24 months if no change Multiple nodules size: >8 mm * Low risk patients: follow-up at 3-6 months, then consider further follow-up at 18-24 months * high risk patients: follow-up at 3-6 months, then at 18-24 months if no change Note: newly detected indeterminate nodule in persons 35 years of age or older. * Low risk patients: minimal or absent history of smoking and/or other known risk factors * high risk patients: history of smoking or of other known risk factors (e.g. first degree relative with lung cancer, or exposure to asbestos, radon, uranium) * if a nodule up to 8 mm is partly solid or is ground glass further follow-up is required after 24 months to exclude possible slow growing adenocarcinoma (MAGALYS) SUBSOLID NODULES Solitary pure ground-glass nodule * nodule size <6 mm - no CT follow-up required * nodule size >=6 mm - follow-up CT at 6-12 months, then every 2 years until 5 years Solitary part-solid nodule * nodule size <6 mm - no CT follow-up required * nodule size >=6 mm - follow-up CT at 3-6 months. If unchanged, and solid component remains <6 mm, then annual follow-up for 5 years Multiple subsolid nodules * nodule size <6 mm - follow-up CT at 3-6 months, consider further follow-up at 2 and 4 years if stable * nodule size >=6 mm - follow-up CT at 3-6 months, subsequent management based on the most suspicious nodule(s) Electronically signed by: Kuldeep Valero M.D. 04/05/2017 1:32 PM Dictated Date/Time: 04/05/2017 1:23 PM
== END | disposition home or self-care (01) ==
LOC: C.CTS 13:03
PROVIDERS: ATTEND Family Medicine
DX: R91.8 Other nonspecific abnormal finding of lung field (principal)

== ENCOUNTER 2019-08-27 13:21 | Inpatient (IN) ==
[2019-08-27 15:51] LABS: Basophils # (auto) 0.03 K/uL (0-0.2); Basophils % (auto) 0.4 %; Eosinophils # (auto) 0.11 K/uL (0-0.5); Eosinophils % (auto) 1.3 %; Hematocrit (blood only) 43.3 % (42-52); Hemoglobin 14.8 g/dL (14.0-18.0); Immature Granulocytes # (auto) 0.02 K/uL (0.00-0.02); Immature Granulocytes % (auto) 0.2 %; Lymphocytes # (auto) 1.86 K/uL (1.2-3.4); Lymphocytes % (auto) 22.4 %; Mean Corpuscular Hemoglobin 28.8 pg (25-34); Mean Corpuscular Hgb Conc 34.2 g/dL (32-36); Mean Corpuscular Volume 84.4 fL (80-100); Mean Platelet Volume 11.4 fL (7.4-10.4); Monocytes # (auto) 0.64 K/uL (0.11-0.59); Monocytes % (auto) 7.7 %; Neutrophils # (auto) 5.65 K/uL (1.4-6.5); Platelet Count 219 K/uL (130-400); RDW Coefficient of Variation 14.6 % (11.5-14.5); RDW Standard Deviation 45.3 fL (36.4-46.3); Red Blood Count 5.13 M/uL (4.7-6.1); White Blood Count 8.31 K/uL (4.8-10.8)
--- NOTE | 2019-08-27 16:01 | Emergency Department Note ---
Impression & Plan AVB (atrioventricular block), Symptomatic bradycardia, Dizzinesses ED Provider Note Provider: Ortiz Hernandez MD DATE OF SERVICE: 08/27/2019 CHIEF COMPLAINT: Dizziness, low heart rate HISTORY OF PRESENT ILLNESS: Patient is a 63-year-old gentleman history of cardiac disease with a CT in 1983 as well as a history of diabetes and hypertension presenting today with a complaint of dizziness starting yesterday as well as a low heart rate over last several days. Follows with Dr. Faria cardiology. Had an echo and saw him last week. States he is been on his home medications significantly 100 mg metoprolol in the evening as well as baby aspirin. Patient states he had a little bit of right ear pain this morning denies any other headache. Denies actually falling or syncopizing. Patient d enies shortness of breath or chest pain at this time. Denies recent medication changes. REVIEW OF SYSTEMS: A total of 10 review of systems was obtained and negative except as stated above in the HPI. PAST MEDICAL HISTORY: As noted above MEDICATIONS: Reviewed home medications with the patient SOCIAL HISTORY: Non-smoker, , lives at home PHYSICAL EXAM: GENERAL: alert and oriented in no acute distress on stretcher Head: normocephalic and atraumatic EYES: No injection, discharge or icterus. ENT: Mucous membranes pink and moist. LUNGS: Airway patent. No retractions. Breath sounds clear with good air entry bilaterally. HEART: Irregular bradycardic rate and rhythm. No chest wall tenderness ABDOMEN: Soft and non-tender, without guarding or rebound. SKIN: Acyanotic, warm, dry, without rashes EXTREMITIES: Without tenderness or deformity there is some proximally 1+ lower extremity edema. NEUROLOGICAL: No focal deficits. No aphasia. No facial droop or slurred speech. Normal strength and tone in the extremities. Sensation to gross touch normal. EKG: Patient has a rate of 46 bpm appears to be a high degree AV block second- degree type II versus complete heart block. There is some occasional artifact. There is a varying interventricular conduction delay. No priors are available. CONTINUOUS CARDIAC MONITORING: was ordered and showed a heart rate of 35-45 bpm in high degree AV block Patient's hypertension was referred to the hospitalist HOSPITAL COURSE: 1520 Patient was first seen and H&P performed. 153 patient updated with my discussion from cardiology. Discussed with Dr. Oliveira. 1634 discussed with the hospitalist team, Dr. Benjamin and he was aware of the patient. 1800 patient reassessed and updated and was resting comfortably in the room heart rate in the 30s but asymptomatic. Cardiac pads in place. Patient's laboratory studies and imaging reviewed. Differential includes Infection, dehydration, metabolic abnormality, hypo/hyperglycemia, electrolyte disturbance, anemia, hypoxia, cardiac sources, intracerebral event, toxicologic, neurologic, as well as other pathologies. IMPRESSION/MEDICAL DECISION MAKING: Patient presents here with complaint of some dizziness and low heart rate/bradycardia over last several days. Is on metoprolol. EKG upon arrival highly concerning for either a second-degree type II AV block versus complete heart block. Reviewed cardiology who are in agreement. Patient was paced on teletypesetter monitor with defibrillation pads in place. Hypertensive here. Labs and x-ray were obtained. No significant abnormality on blood work. I doubt this acute intracerebral event I doubt the need for CT of the head at this time. Discussed with the patient findings and the need for further care in the hospital. Patient's metoprolol will need to be held. Further cardiac consultation may be placed for guidance as to whether pacemaker placement is required. Lyme screen was later ordered and negative. DIAGNOSIS: Complete AV block, dizziness, symptomatic bradycardia DISPOSITION: Hospitalist will evaluate Patient was agreeable with this plan. Critical Care I have personally spent 31 minutes of critical care time in the direct management of this patient. This includes bedside care, interpretation of diagnostic studies, and testing, discussion with consultants, patient, and family members, and other required patient management activities. These 31 minutes is in excess of all separately billable procedures. Past Med/Surg History Medical History (Updated 08/27/19 @ 16:01 by Ortiz Hernandez M.D.) Asthma inhaler daily/prn Diabetes mellitus, type 2 Hyperlipidemia Hypertension Myocardial Infarction 04/1983--follows with Dr. Faria Osteoarthritis Surgical History (Updated 05/30/19 @ 13:09 by Robin Barraza MD) History of appendectomy History of colonoscopy with polypectomy (2010) History of esophagogastroduodenoscopy (EGD) History of repair of right rotator cuff x2 History of wisdom tooth extraction Status post coronary angiogram 1983 Social History Smoking Status: Never smoker Second Hand Exposure: No; Do You Dip or Chew Tobacco: No; Hx Alcohol Use: Yes Alcohol type: wine and hard liquor Hx Substance Use: No Preferred Language: Portuguese Communication Ability: Effective Scheduler Maintenance Required: No Beliefs That Will Affect Care: None Current Living Situation: Spouse Other Information That Helps Us Care for You: No Feels Safe at Home: Yes Safety Concerns: Feels Safe At This Time Allergies Allergies Allergy/AdvReac Type Severity Reaction Status Date / Time bee venom protein (honey bee) Allergy Severe ANAPHYLAXIS Verified 08/27/19 16:31 hornet venom Allergy Severe ANAPHYLAXIS Verified 08/27/19 16:31 No Known Drug Allergies Allergy Unknown ## MAJOR Verified 08/27/19 20:18 ALLERGY: WASP;HORNET; BEE ## pollen extracts Allergy ITCHY, Verified 08/27/19 16:32 WATERY EYES, SNEEZE Home Meds Home Medications Medication Instructions Recorded Confirmed albuterol sulfate 90 mcg/actuation 2 puffs INH Q4H PRN gm 12/24/18 08/27/19 aerosol inhaler aspirin 81 mg tablet,delayed 81 mg PO HS tab 12/24/18 08/27/19 release cetirizine 10 mg tablet 10 mg PO QDD tab 12/24/18 08/27/19 diclofenac sodium 1 % topical gel 1 % TOP DAILY PRN gm 12/24/18 08/27/19 epinephrine 0.3 mg/0.3 mL 0.3 mg IM ONCE PRN ea 12/24/18 08/27/19 injection, auto-injector ezetimibe 10 mg tablet 10 mg PO HS tab 12/24/18 08/27/19 fluticasone propionate 110 1 puffs INH BID gm 12/24/18 08/27/19 mcg/actuation HFA aerosol inhaler fluticasone propionate 50 2 sprays INTNAS QAM ml 12/24/18 08/27/19 mcg/actuation nasal spray,suspension lorazepam 0.5 mg tablet 0.5 mg PO DAILY PRN tab 12/24/18 08/27/19 metformin 500 mg tablet 1,000 mg PO BID tab 12/24/18 08/27/19 metoprolol succinate 100 mg 100 mg PO HS tab 12/24/18 08/27/19 tablet,extended release 24 hr nitroglycerin 0.4 mg sublingual 0.4 mg SL Q5M PRN tab 12/24/18 08/27/19 tablet rosuvastatin 40 mg tablet 40 mg PO HS tab 12/24/18 08/27/19 valacyclovir 1 gram tablet 1,000 mg PO BID PRN 12/24/18 08/27/19 valsartan 160 mg tablet 160 mg PO HS 12/24/18 08/27/19 Mucinex 1,200 mg PO QPM 01/02/19 08/27/19 Vascepa 2 g PO BID 01/02/19 08/27/19 multivitamin 1 tab PO QAM 01/02/19 08/27/19 mupirocin 1 applic TOPICAL QAM 01/02/19 08/27/19 famotidine 20 mg tablet 20 mg PO DAILY tab 07/24/19 08/27/19 alirocumab [Praluent Pen] 150 mg SUBCUT [id number] 08/27/19 08/27/19 Results & Data (ED) Vital Signs Vital Signs - 24 hr 08/27/19 13:58 08/27/19 15:21 08/27/19 16:01 Temperature 36.9 C Temperature Source Oral Pulse Rate 52 L 47 L Pulse Rate [Left Finger] 45 L Pulse Rate from SpO2 Sensor 47 L Respiratory Rate 16 20 14 Blood Pressure 162/63 H 153/68 H Blood Pressure [Right Arm] 183/65 H Blood Pressure Mean 96 109 Blood Pressure Mean [Right Arm] 104 Pulse Oximetry 95 93 94 Oxygen Delivery Method Room Air Sepsis Recent Fever Within 48 Hours No Sepsis New/Unexplained Change in Mental Status No Sepsis Action Taken by Nursing No Action Required 08/27/19 16:30 08/27/19 17:01 08/27/19 17:31 Temperature Temperature Source Pulse Rate 49 L 46 L 42 L Pulse Rate [Left Finger] Pulse Rate from SpO2 Sensor Respiratory Rate 17 13 21 Blood Pressure 153/63 H 163/69 H 151/76 H Blood Pressure [Right Arm] Blood Pressure Mean 109 125 132 Blood Pressure Mean [Right Arm] Pulse Oximetry Oxygen Delivery Method Sepsis Recent Fever Within 48 Hours Sepsis New/Unexplained Change in Mental Status Sepsis Action Taken by Nursing 08/27/19 17:39 08/27/19 18:01 08/27/19 18:02 Temperature Temperature Source Pulse Rate 38 L 38 L 39 L Pulse Rate [Left Finger] Pulse Rate from SpO2 Sensor Respiratory Rate 13 20 17 Blood Pressure 171/63 H 125/61 Blood Pressure [Right Arm] Blood Pressure Mean 87 91 Blood Pressure Mean [Right Arm] Pulse Oximetry Oxygen Delivery Method Sepsis Recent Fever Within 48 Hours Sepsis New/Unexplained Change in Mental Status Sepsis Action Taken by Nursing 08/27/19 18:10 08/27/19 18:20 08/27/19 18:30 Temperature Temperature Source Pulse Rate 39 L 37 L 38 L Pulse Rate [Left Finger] Pulse Rate from SpO2 Sensor Respiratory Rate 13 17 18 Blood Pressure Blood Pressure [Right Arm] Blood Pressure Mean Blood Pressure Mean [Right Arm] Pulse Oximetry Oxygen Delivery Method Sepsis Recent Fever Within 48 Hours Sepsis New/Unexplained Change in Mental Status Sepsis Action Taken by Nursing 08/27/19 18:31 08/27/19 18:40 08/27/19 18:50 Temperature Temperature Source Pulse Rate 36 L 36 L 36 L Pulse Rate [Left Finger] Pulse Rate from SpO2 Sensor Respiratory Rate 19 18 19 Blood Pressure 143/59 H Blood Pressure [Right Arm] Blood Pressure Mean 86 Blood Pressure Mean [Right Arm] Pulse Oximetry Oxygen Delivery Method Sepsis Recent Fever Within 48 Hours Sepsis New/Unexplained Change in Mental Status Sepsis Action Taken by Nursing Laboratory Data Result diagrams: 08/27/19 15:30 08/27/19 15:30 Lab Results 08/27/19 08/27/19 08/27/19 Range/Units 15:30 15:30 15:30 WBC 8.31 (4.8-10.8) K/uL RBC 5.13 (4.7-6.1) M/uL Hgb 14.8 (14.0-18.0) g/dL Hct 43.3 (42-52) % MCV 84.4 (80-100) fL MCH 28.8 (25-34) pg MCHC 34.2 (32-36) g/dL RDW Std Deviation 45.3 (36.4-46.3) fL RDW Coeff of Hermila 14.6 H (11.5-14.5) % Plt Count 219 (130-400) K/uL MPV 11.4 H (7.4-10.4) fL Immature Gran % (Auto) 0.2 % Neut % (Auto) 68.0 % Lymph % (Auto) 22.4 % Trinity % (Auto) 7.7 % Eos % (Auto) 1.3 % Baso % (Auto) 0.4 % Neut # (Auto) 5.65 (1.4-6.5) K/uL Lymph # (Auto) 1.86 (1.2-3.4) K/uL Trinity # (Auto) 0.64 H (0.11-0.59) K/uL Eos # (Auto) 0.11 (0-0.5) K/uL Baso # (Auto) 0.03 (0-0.2) K/uL Immature Gran # (Auto) 0.02 (0.00-0.02) K/uL Sodium 140 (136-145) mmol/L Potassium 4.0 (3.5-5.1) mmol/L Chloride 108 H (98-107) mmol/L Carbon Dioxide 24 (21-32) mmol/L Anion Gap 8.0 (3-11) BUN 19 H (7-18) mg/dl Creatinine 0.96 (0.6-1.4) mg/dl Est Cr Clr Drug Dosing 84.8 ml/min Est GFR ( Amer) 95.8 Est GFR (Non-Af Amer) 82.6 BUN/Creatinine Ratio 19.9 (10-20) Glucose 103 H (70-99) mg/dl Calcium 9.2 (8.5-10.1) mg/dl Magnesium 2.5 H (1.8-2.4) mg/dl Total Bilirubin 0.3 (0.2-1) mg/dl AST 26 (15-37) U/L ALT 27 (12-78) U/L Alkaline Phosphatase 69 (45-117) U/L Troponin I < 0.015 (0-0.045) ng/ml Total Protein 7.9 (6.4-8.2) gm/dl Albumin 4.0 (3.4-5.0) gm/dl Globulin 3.9 (2.5-4.0) gm/dl Albumin/Globulin Ratio 1.0 (0.9-2) TSH 2.550 (0.300-4.500) uIu/ml Lyme Disease IgG Ab Cancelled Lyme Disease IgM Ab Cancelled Administered Medications Aspirin (Ecotrin Ectab) 81 mg PO HS BRENDA Stop: 09/26/19 20:59 Last Admin: 08/27/19 21:26 Dose: 81 mg Documented by: [id number] Ezetimibe (Zetia) 10 mg PO HS BRENDA Stop: 09/26/19 20:59 Last Admin: 08/27/19 21:26 Dose: 10 mg Documented by: [id number] Guaifenesin (Mucinex) 1,200 mg PO QPM BRENDA Stop: 09/26/19 20:59 Last Admin: 08/27/19 21:27 Dose: 1,200 mg Documented by: [id number] Insulin Aspart (Novolog Flexpen) 0 units SC ACHS BRENDA Stop: 09/26/19 20:59 Last Admin: 08/27/19 21:31 Dose: Not Given Documented by: [id number] Cosigned by: [id number] Rosuvastatin Calcium (Crestor) 40 mg PO HS BRENDA Stop: 09/26/19 20:59 Last Admin: 08/27/19 21:27 Dose: 40 mg Documented by: [id number] Valsartan (Diovan) 160 mg PO HS BRENDA Stop: 09/26/19 20:59 Last Admin: 08/27/19 21:27 Dose: 160 mg Documented by: [id number] Discontinued Medications Fluticasone Propionate (Flovent Hfa 110mch) 1 puffs INH BID BRENDA Stop: 09/26/19 20:59 Last Admin: 08/27/19 21:26 Dose: Not Given Documented by: [id number] Discharge Plan Visit Data *Final* Discharge Date/Time: 08/27/19 19:59 Chief Complaint: Bradycardia Stated Complaint: SENT BY [facility] PULSE, SHARP PAIN IN RIGHT EAR ED Provider: Ortiz Hernandez Discharge Problem: AVB (atrioventricular block), Symptomatic bradycardia, Dizzinesses Patient Disposition: Admitted As Inpatient Condition: Fair Discharge Instructions Interventions: ED Discharge Assessment Last Done: 08/27/19 19:59
[2019-08-27 16:07] LABS: Alanine Aminotransferase 27 U/L (12-78); Aspartate Aminotransferase 26 U/L (15-37); BUN Creatinine Ratio 19.9 (10-20); Blood Urea Nitrogen 19 mg/dl (7-18); Calcium 9.2 mg/dl (8.5-10.1); Carbon Dioxide 24 mmol/L (21-32); Chloride 108 mmol/L (98-107); Creatinine Clr Calc Pharmacy 84.8 ml/min; Est GFR (African American) 95.8; Est GFR (Non-African American) 82.6; Glucose 103 mg/dl (70-99); Magnesium 2.5 mg/dl (1.8-2.4); Sodium 140 mmol/L (136-145)
[2019-08-27 16:18] LABS: Alkaline Phosphatase 69 U/L (45-117); Bilirubin,Total 0.3 mg/dl (0.2-1); Globulin 3.9 gm/dl (2.5-4.0); Total Protein 7.9 gm/dl (6.4-8.2); Troponin I < 0.015 ng/ml (0-0.045)
--- NOTE | 2019-08-27 16:40 | XRay Report ---
XR chest 1V portable HISTORY: dizzy COMPARISON: Chest 12/09/2016. FINDINGS: No pneumothorax. No pleural effusions. The heart remains mildly enlarged. The right lung is clear. No evidence for pulmonary edema. No focal lung consolidations to suggest pneumonia. A stable 5 mm nodule within the left midlung zone. This is likely benign given the long-term stability. IMPRESSION: Stable mild cardiomegaly. No acute process within the chest. ACT 112: Negative or not required by law. Electronically signed by: Kuldeep Valero M.D. 08/27/2019 4:39 PM
--- NOTE | 2019-08-27 19:09 | History & Physical Report ---
Date of Service August 27, 2019 Assessment & Plan (1) AVB (atrioventricular block): CHB on telemetry in ER. Should improve with holding his usual metoprolol XL (or at least not get worse). Pacing pads in place but currently not needing external pacing or urgent need for temporary pacing wire. Given symptoms started yesterday and troponin negative on admission I do not suspect ACS and given recent TTE in office last week will defer repeating this to his usual cable tool driller. Consult his usual cable tool driller in AM regarding pacemaker. NPO after midnight. (2) Symptomatic bradycardia: as above (3) Dizzinesses: as above (4) Morbid obesity: (5) Severe obstructive sleep apnea: Continue home CPAP @ [facility] (6) Coronary artery disease: Remote history of [place] in 1983 - medical intervention alone ASA, valsartan, rosuvastatin Holding AV pradip blocking agents (metoprolol) as above (7) Diabetes mellitus, type 2: HbA1C in AM BSG ACHS with insulin correction coverage only T2DM, heart healthy, low Na diet (8) Asthma: No current exacerbation Continue Flovent 1 puff BID, albuterol INH PRN (9) Hyperlipidemia: Continue rosuvastatin and ezetimibe Recently switched to Praluent but doubtful this caused his CHB as above but given correlation with defer continuation to his usual cable tool driller Has lipid panel as outpatient. No indication to repeat acutely. (10) Hypertension: Continue valsartan Holding metoprolol XL as above fro CHB (11) Postnasal drip: Suspected because of his chronic cough as discussed with the patient. Continue Flonase nasal spray. (12) GERD (gastroesophageal reflux disease): Continue famotidine. Patient is less convinced this is the cause of his chronic cough. (13) DVT prophylaxis: Will defer chemical prophylaxis pending decision regarding pacemaker insertion. Consider starting lovenox if no emergent need for temporary or permanent pacemaker. SCDs Admission and Anticipated Discharge Date Admission Date: 08/27/2019 History of Present Illness Chief Complaint: Symptomatic bradycardia Primary Care Provider: Adelso Mcdaniel MD Jose Luis Kunz is a 63 year old male with remote history of myocardial infarction who presents to the ER with dizziness. He first noticed becoming lightheaded and dizzy on standing up yesterday morning. Associated tingling all over and feeling flushed. He does note a chronic cough although this is been no worse than usual. He denies any chest pain, shortness of breath, orthopnea, PND, claudication, fevers or chills. No known COVID-19 exposure. After this occurred he sat down for short amount of time and when he next to the he was fine. 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 Usually has good exercise tolerance and can walk a mile without stopping. Measures HR usually 3-4 times/day - only bradycardia episodes recorded started today. BP twice a day -recent measurements have been stable. Only new medication was switching from Repatha to Praluent which he started on Tuesday - this was due to insurance reasons. He was recently in to see his cable tool driller and had transthoracic echocardiogram performed 1 week previously showing LVEF 50%. Basal inferoseptal, basal inferior, basal to mid inferior lateral pearl are thin, akinetic and scarred. In the ER he was noted to be in complete heart block. He is currently asymptomatic at rest with external pacing pads in place but not requiring pacing at this time. He usually takes metoprolol succinate 100 mg daily. Last dose was last night. Allergies Allergy/AdvReac Type Severity Reaction Status Date / Time bee venom protein (honey bee) Allergy Severe ANAPHYLAXIS Verified 08/27/19 16:31 hornet venom Allergy Severe ANAPHYLAXIS Verified 08/27/19 16:31 No Known Drug Allergies Allergy Unknown ## MAJOR Verified 08/27/19 20:18 ALLERGY: WASP;HORNET; BEE ## pollen extracts Allergy ITCHY, Verified 08/27/19 16:32 WATERY EYES, SNEEZE Home Medications Home Medications Medication Instructions Recorded Confirmed Type albuterol sulfate 90 mcg/actuation 2 puffs INH Q4H PRN gm 12/24/18 08/27/19 History aerosol inhaler aspirin 81 mg tablet,delayed 81 mg PO HS tab 12/24/18 08/27/19 History release cetirizine 10 mg tablet 10 mg PO QDD tab 12/24/18 08/27/19 History diclofenac sodium 1 % topical gel 1 % TOP DAILY PRN gm 12/24/18 08/27/19 History epinephrine 0.3 mg/0.3 mL 0.3 mg IM ONCE PRN ea 12/24/18 08/27/19 History injection, auto-injector ezetimibe 10 mg tablet 10 mg PO HS tab 12/24/18 08/27/19 History fluticasone propionate 110 1 puffs INH BID gm 12/24/18 08/27/19 History mcg/actuation HFA aerosol inhaler fluticasone propionate 50 2 sprays INTNAS QAM ml 12/24/18 08/27/19 History mcg/actuation nasal spray,suspension lorazepam 0.5 mg tablet 0.5 mg PO DAILY PRN tab 12/24/18 08/27/19 History metformin 500 mg tablet 1,000 mg PO BID tab 12/24/18 08/27/19 History metoprolol succinate 100 mg 100 mg PO HS tab 12/24/18 08/27/19 History tablet,extended release 24 hr nitroglycerin 0.4 mg sublingual 0.4 mg SL Q5M PRN tab 12/24/18 08/27/19 History tablet rosuvastatin 40 mg tablet 40 mg PO HS tab 12/24/18 08/27/19 History valacyclovir 1 gram tablet 1,000 mg PO BID PRN 12/24/18 08/27/19 History valsartan 160 mg tablet 160 mg PO HS 12/24/18 08/27/19 History Mucinex 1,200 mg PO QPM 01/02/19 08/27/19 History Vascepa 2 g PO BID 01/02/19 08/27/19 History multivitamin 1 tab PO QAM 01/02/19 08/27/19 History mupirocin 1 applic TOPICAL QAM 01/02/19 08/27/19 History famotidine 20 mg tablet 20 mg PO DAILY tab 07/24/19 08/27/19 History alirocumab [Praluent Pen] 150 mg SUBCUT .[id number] 08/27/19 08/27/19 History Past Med/Surg History Medical History Asthma inhaler daily/prn Coronary artery disease Diabetes mellitus, type 2 Hyperlipidemia Hypertension Myocardial Infarction 04/1983--follows with Dr. Faria Osteoarthritis Surgical History History of appendectomy History of colonoscopy with polypectomy (2010) History of esophagogastroduodenoscopy (EGD) History of repair of right rotator cuff x2 History of wisdom tooth extraction Status post coronary angiogram 1984 Family History Father Family hx of colon cancer Other No family history of adverse response to anesthesia Social History Smoking Status: Never smoker Second Hand Exposure: No; Do You Dip or Chew Tobacco: No; Hx Alcohol Use: Yes Alcohol type: wine and hard liquor Hx Substance Use: No Preferred Language: Malay Communication Ability: Effective Senior Benefits Manager Required: No Beliefs That Will Affect Care: None Current Living Situation: Spouse Other Information That Helps Us Care for You: No Feels Safe at Home: Yes Safety Concerns: Feels Safe At This Time Review of Systems Review of Systems: All systems reviewed & are unremarkable except as noted in HPI & below Constitutional: + weight loss (12 pounds since February, less junk food with isolation and increased mobility) Physical Exam 2 Constitutional: well nourished and + morbidly obese; + not well developed and no acute distress Eyes: + anicteric sclerae; normal pupil size ENMT: external ear and nose normal, oropharynx normal Neck: trachea midline, + short neck and + thick neck Respiratory: normal respiratory effort, lungs clear to auscultation Cardiovascular: Rate/Rhythm: regular rhythm and + bradycardic Heart Sounds: no murmur Vessels: radial pulses present; no JVD (Difficult to assess of neck size) Extremities: normal capillary refill and + pedal edema (1+ equal bilaterally); no calf tenderness Gastrointestinal (Abdomen): normal bowel sounds, soft, nontender, no hepatosplenomegaly Musculoskeletal: no cyanosis or clubbing, extremities motor strength 5/5 Skin: no rashes, warm and dry Neurologic: moves all extremities and awake; not confused Psychiatric: A+Ox3, euthymic affect Lymphatic: no cervical or axillary lymphadenopathy Results & Data Results & Data ([facility]) Vital Signs (Past 12 Hours) Vital Signs Temp Pulse Pulse Resp BP BP Pulse Ox 08/27/19 18:01 38 L 20 125/61 08/27/19 17:39 38 L 13 171/63 H 08/27/19 17:31 42 L 21 151/76 H 08/27/19 17:01 46 L 13 163/69 H 08/27/19 16:30 49 L 17 153/63 H 08/27/19 16:01 47 L 14 153/68 H 94 08/27/19 15:21 45 L 20 183/65 H 93 08/27/19 13:58 36.9 C 52 L 16 162/63 H 95 Diagnostic Findings XR chest 1V portable IMPRESSION: Stable mild cardiomegaly. No acute process within the chest. ECG Indication: bradycardia Rate (beats per minute): 46 Findings: + complete heart block (Appearance on telemetry consistent with this) and + LBBB Comparison ECG Date: no prior available Code Status & VTE Plan Code Status Full VTE Prophylaxis Plan VTE Prophylaxis will be ordered: Yes PG Care Time/CCT Total # of Minutes Spent Total Time Spent with Patient: Total time spent is greater than 50% in coordination of care (as documented) at patient's floor/unit and/or counseling patient: Coding Level of Care Code 00033 Initial Inpt Care Lvl 3 Diagnoses AVB (atrioventricular block) I44.30 Symptomatic bradycardia R00.1 Dizzinesses R42 Morbid obesity E66.01 Severe obstructive sleep apnea G47.33 Coronary artery disease I25.10 Diabetes mellitus, type 2 E11.9 Asthma J45.909 Hyperlipidemia E78.5 Hypertension I10 Postnasal drip R09.82 GERD (gastroesophageal reflux disease) K21.9 DVT prophylaxis Z29.9
[2019-08-27] MEDS ORDERED: GLUCOSE 10 TABS/TUBE PO PRN (20:13)
[2019-08-27] MEDS ORDERED: DICLOFENAC SOD 1% GEL 100 GM TUBE EXT PRN (20:13)
[2019-08-27] MEDS ORDERED: GLUCAGON FOR INJ 1 MG VIAL SQ PRN (20:13)
[2019-08-27] MEDS ORDERED: DEXTROSE 50% 50 ML SYRINGE IV PRN (20:13)
[2019-08-27] MEDS ORDERED: CARBOHYDRATES FOR HYPOGLYCEMIA PO PRN (20:13)
[2019-08-27] MEDS ORDERED: GLUCOSE 40% GEL 15 GM TUBE PO PRN (20:13)
[2019-08-27 20:43] LABS: Lyme Ab IgG w/WB Rflx Negative (Negative); Lyme Ab IgM w/WB Rflx Negative (Negative)
[2019-08-27] MEDS ORDERED: FLUTICASONE HFA 110MCG INHALER INH SCH (21:00)
[2019-08-27] MEDS: EZETIMIBE 10 MG TABLET PO SCH (21:26)
[2019-08-27] MEDS: ASPIRIN 81 MG ECTAB PO SCH (21:26)
[2019-08-27] MEDS: guaiFENesin 600 MG TABCR PO SCH (21:27)
[2019-08-27] MEDS: VALSARTAN 80 MG TAB PO SCH (21:27)
[2019-08-27] MEDS: ROSUVASTATIN CALCIUM 20 MG TAB PO SCH (21:27)
[2019-08-27] MEDS: INSULIN ASPART 100 UNITS/ML 3 ML PEN SC SCH (21:31)
[2019-08-28 06:24] LABS: Basophils # (auto) 0.04 K/uL (0-0.2); Basophils % (auto) 0.6 %; Eosinophils # (auto) 0.09 K/uL (0-0.5); Eosinophils % (auto) 1.3 %; Hematocrit (blood only) 40.7 % (42-52); Hemoglobin 13.7 g/dL (14.0-18.0); Immature Granulocytes # (auto) 0.01 K/uL (0.00-0.02); Immature Granulocytes % (auto) 0.1 %; Lymphocytes # (auto) 2.41 K/uL (1.2-3.4); Lymphocytes % (auto) 34.8 %; Mean Corpuscular Hemoglobin 28.8 pg (25-34); Mean Corpuscular Hgb Conc 33.7 g/dL (32-36); Mean Corpuscular Volume 85.5 fL (80-100); Mean Platelet Volume 11.3 fL (7.4-10.4); Monocytes # (auto) 0.69 K/uL (0.11-0.59); Neutrophils # (auto) 3.68 K/uL (1.4-6.5); Neutrophils % (auto) 53.2 %; Platelet Count 212 K/uL (130-400); RDW Coefficient of Variation 14.7 % (11.5-14.5); RDW Standard Deviation 46.1 fL (36.4-46.3); Red Blood Count 4.76 M/uL (4.7-6.1); White Blood Count 6.92 K/uL (4.8-10.8)
[2019-08-28 07:00] LABS: Estimated Average Glucose 140 mg/dl; Hemoglobin A1C 6.5 % (4.5-5.6)
[2019-08-28 07:07] LABS: Blood Urea Nitrogen 19 mg/dl (7-18); Calcium 8.8 mg/dl (8.5-10.1); Carbon Dioxide 25 mmol/L (21-32); Chloride 111 mmol/L (98-107); Est GFR (African American) 109.8; Est GFR (Non-African American) 94.7; Glucose 110 mg/dl (70-99); Potassium 3.9 mmol/L (3.5-5.1); Sodium 143 mmol/L (136-145)
[2019-08-28 07:11] LABS: Troponin I < 0.015 ng/ml (0-0.045)
[2019-08-28] MEDS: INSULIN ASPART 100 UNITS/ML 3 ML PEN SC SCH ×4 (07:46→21:40)
--- NOTE | 2019-08-28 09:58 | Cardiology Consultation ---
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 After that he sort of felt tired the rest of the day and he notes his heart rate which is usually in the 50s and 60s slowly went from the 50s into the high 30s on his blood pressure monitor. Since then his heart rate has remained in the high 30s he has had some weakness he notes some very vague chest tightness. He denies any presyncope or syncope. He has had no falls. He is unaware of any tick bites. He does cut t he grass using a tractor but sprays his pants with the. He denies any current lightheadedness or dizziness or palpitations. His baseline EKG in the emergency room shows what appears to be complete heart block with alternating bundles. His second EKG appears to show more 2-1 AV block with a bundle branch block. August 28, 2019 History of Present Illness Attending Physician: Regino Kramer, Allergies Allergy/AdvReac Type Severity Reaction Status Date / Time bee venom protein (honey bee) Allergy Severe ANAPHYLAXIS Verified 08/27/19 16:31 hornet venom Allergy Severe ANAPHYLAXIS Verified 08/27/19 16:31 No Known Drug Allergies Allergy Unknown ## MAJOR Verified 08/27/19 20:18 ALLERGY: WASP;HORNET; BEE ## pollen extracts Allergy ITCHY, Verified 08/27/19 16:32 WATERY EYES, SNEEZE Home Medications Home Medications Medication Instructions Recorded Confirmed Type albuterol sulfate 90 mcg/actuation 2 puffs INH Q4H PRN gm 12/24/18 08/27/19 History aerosol inhaler aspirin 81 mg tablet,delayed 81 mg PO HS tab 12/24/18 08/27/19 History release cetirizine 10 mg tablet 10 mg PO QDD tab 12/24/18 08/27/19 History diclofenac sodium 1 % topical gel 1 % TOP DAILY PRN gm 12/24/18 08/27/19 History epinephrine 0.3 mg/0.3 mL 0.3 mg IM ONCE PRN ea 12/24/18 08/27/19 History injection, auto-injector ezetimibe 10 mg tablet 10 mg PO HS tab 12/24/18 08/27/19 History fluticasone propionate 110 1 puffs INH BID gm 12/24/18 08/27/19 History mcg/actuation HFA aerosol inhaler fluticasone propionate 50 2 sprays INTNAS QAM ml 12/24/18 08/27/19 History mcg/actuation nasal spray,suspension lorazepam 0.5 mg tablet 0.5 mg PO DAILY PRN tab 12/24/18 08/27/19 History metformin 500 mg tablet 1,000 mg PO BID tab 12/24/18 08/27/19 History metoprolol succinate 100 mg 100 mg PO HS tab 12/24/18 08/27/19 History tablet,extended release 24 hr nitroglycerin 0.4 mg sublingual 0.4 mg SL Q5M PRN tab 12/24/18 08/27/19 History tablet rosuvastatin 40 mg tablet 40 mg PO HS tab 12/24/18 08/27/19 History valacyclovir 1 gram tablet 1,000 mg PO BID PRN 12/24/18 08/27/19 History valsartan 160 mg tablet 160 mg PO HS 12/24/18 08/27/19 History Mucinex 1,200 mg PO QPM 01/02/19 08/27/19 History Vascepa 2 g PO BID 01/02/19 08/27/19 History multivitamin 1 tab PO QAM 01/02/19 08/27/19 History mupirocin 1 applic TOPICAL QAM 01/02/19 08/27/19 History famotidine 20 mg tablet 20 mg PO DAILY tab 07/24/19 08/27/19 History alirocumab [Praluent Pen] 150 mg SUBCUT .[id number] 08/27/19 08/27/19 History Patient History Medical History Asthma inhaler daily/prn Coronary artery disease Diabetes mellitus, type 2 Hyperlipidemia Hypertension Myocardial Infarction 04/1983--follows with Dr. Faria Osteoarthritis Surgical History History of appendectomy History of colonoscopy with polypectomy (2010) History of esophagogastroduodenoscopy (EGD) History of repair of right rotator cuff x2 History of wisdom tooth extraction Status post coronary angiogram 1983 Family History Father Family hx of colon cancer Other No family history of adverse response to anesthesia Social History Smoking Status: Never smoker Second Hand Exposure: No; Do You Dip or Chew Tobacco: No; Hx Alcohol Use: Yes Alcohol type: wine and hard liquor Hx Substance Use: No Preferred Language: [place]ruguayan Communication Ability: Effective Dip Painter Required: No Beliefs That Will Affect Care: None Current Living Situation: Spouse Other Information That Helps Us Care for You: No Feels Safe at Home: Yes Safety Concerns: Feels Safe At This Time Results & Data ([facility]) Vital Signs (Past 12 Hours) Vital Signs Temp Pulse Pulse Resp BP Pulse Ox 08/28/19 08:04 37 L 08/28/19 07:22 36.5 C 38 L 16 124/64 97 08/28/19 04:46 36.5 C 35 L 18 127/62 96 08/28/19 00:00 38 L 08/27/19 23:47 37.0 C 37 L 18 119/60 96 He is awake alert and oriented x3. He is in no acute distress. He denies any lightheadedness currently. HEENT 2+ carotid upstrokes no evidence of carotid bruits Lungs: Clear to auscultation bilaterally no rales rhonchi or wheezing Heart: Regular rate and rhythm (bradycardic) no appreciable murmurs Abdomen: Soft nontender distended positive bowel sounds Extremities: No clubbing cyanosis or edema Psychiatric: His affect appeared appropriate Neurologic: He is awake alert and oriented x3 His EKGs were reviewed as discussed above Echocardiogram July 2019 with an EF in the range of 50% with basal inferior and inferolateral akinesis Lyme titers are negative. All his labs were reviewed. 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 Hyperlipidemia and hypertriglyceridemia 4. Hypertension 5. Obesity with recent weight loss which is been successful 6. Diabetes mellitus type 2 7. Obstructive sleep apnea tolerating CPAP 8. Negative perfusion study in 2010 with no evidence of ischemia As I discussed with Jose Luis at this point even though he is on beta-blockers he has a sudden onset of high degree AV block. He needs a pacemaker. His heart rate is currently 39 bpm with an escape rhythm. More concerning is the fact that his escape rhythm is consistent with alternating bundle suggesting even more significant conduction disease. Given his coronary artery disease and nonischemic cardiomyopathy in discussion with the EP service we would recommend a biventricular pacemaker. I discussed the risks and benefits of biventricular pacing with Jose Luis. In discussion with the EP service we will arrange for by V implantation tomorrow. He could then go home on . We discussed limitations with regards to moving his left arm above 90 degrees for the first 4 weeks after the procedure. We discussed enrollment in pacemaker clinic and long-term follow-up of his device. We discussed the risk of bleeding or infection at the incision site along with pneumothorax and the risk of poking a hole in his heart and the potential need for emergent pericardiocentesis. Jose Luis understands the risks and wishes to proceed. In discussion with the nursing staff he can eat this morning I would continue to hold his beta-blockers but he can get the rest of his medications. He will be n.p.o. after midnight and his insulin will need to be adjusted by the primary service.
[2019-08-28] MEDS: FLUTICASONE HFA 110MCG INHALER INH SCH ×2 (10:03→21:05)
[2019-08-28] MEDS: FLUTICASONE PROPIONATE NA SPR 16 GM BTL NAE SCH (10:03)
[2019-08-28] MEDS: FAMOTIDINE 20 MG TAB PO SCH (10:04)
[2019-08-28] MEDS: ALBUTEROL HFA 8 GM INHALER INH PRN ×2 (10:05→21:05)
[2019-08-28] MEDS ORDERED: ACETAMINOPHEN 325 MG TAB PO PRN (13:04)
--- NOTE | 2019-08-28 13:23 | Electrocardiogram Report ---
Test Reason : Blood Pressure : / mmHG Vent. Rate : 046 BPM Atrial Rate : 056 BPM P-R Int : 000 ms QRS Dur : 146 ms QT Int : 454 ms P-R-T Axes : 000 270 075 degrees QTc Int : 397 ms Sinus rhythm with intermittent complete heart block Left axis deviation Non-specific intra-ventricular conduction block Inferior infarct , age undetermined Abnormal ECG No previous ECGs available Confirmed by George Oliveira ([id number]) on 08/28/2019 1:23:29 PM Referred By: Adelso Mcdaniel Confirmed By:George Oliveira
--- NOTE | 2019-08-28 13:36 | Electrocardiogram Report ---
Test Reason : Blood Pressure : / mmHG Vent. Rate : 037 BPM Atrial Rate : 072 BPM P-R Int : 194 ms QRS Dur : 142 ms QT Int : 536 ms P-R-T Axes : 021 -13 -27 degrees QTc Int : 420 ms Sinus rhythm with 2nd degree A-V block with 2:1 A-V conduction Left bundle branch block Abnormal ECG When compared with ECG of 27-AUG-2019 15:19, (unconfirmed) QRS axis Shifted right Confirmed by George Oliveira ([id number]) on 08/28/2019 1:36:15 PM Referred By: Adelso Mcdaniel Confirmed By:George Oliveira
--- NOTE | 2019-08-28 14:44 | Hospitalist Progress Note ---
Date of Service August 28, 2019 Assessment & Plan (1) AVB (atrioventricular block): periods of complete heart block with occasional bundle branch patterns suggests high degree of conduction disease continue to hold Toprol but he needs a biventricular pacemaker Dr. Faria consult appreciated, plan for NPO after midnight and pacemaker insertion tomorrow with EP Cardiology (2) Symptomatic bradycardia: as above okay as long as he is in bed (3) Dizzinesses: as above again, symptoms are fine as long as he does not exert himself treat with pacemaker (4) Morbid obesity: educated on weight loss (5) Severe obstructive sleep apnea: Continue home CPAP @ [facility] (6) Coronary artery disease: Remote history of GA in 1983 - medical intervention alone ASA, valsartan, rosuvastatin Holding AV pradip blocking agents (metoprolol) as above (7) Diabetes mellitus, type 2: HbA1C is 6.5%, at goal BSG ACHS with insulin correction coverage only T2DM, heart healthy, low Na diet (8) Asthma: No current exacerbation Continue Flovent 1 puff BID, albuterol INH PRN (9) Hyperlipidemia: Continue rosuvastatin and ezetimibe Recently switched to Praluent but doubtful this caused his CHB as above but given correlation with defer continuation to his usual mounter [facility] Has lipid panel as outpatient. No indication to repeat acutely. (10) Hypertension: Continue valsartan Holding metoprolol XL as above fro CHB (11) Postnasal drip: Suspected because of his chronic cough as discussed with the patient. Continue Flonase nasal spray. (12) GERD (gastroesophageal reflux disease): Continue famotidine. Patient is less convinced this is the cause of his chronic cough. (13) DVT prophylaxis: heparin SC, hold in the morning Admission and Anticipated Discharge Date Admission Date: August 27, 2019 Subjective patient is doing fine, no new issues eating well, no chest pain, no dyspnea discussed with Dr. Faria, appreciate his recommendations, plan for Biventricular pacer tomorrow Dr. Tavares will likely be the wildland fire operations specialist patient with some questions about the pacer, told him that Dr. Tavares will be able to answer all of these prior to placement patient is not thrilled with needing a pacer but he understands that he needs it Review of Systems Review of Systems: All systems reviewed & are unremarkable except as noted in Subjective Constitutional: + sweats (happened once after eating lunch, no other occurences) Respiratory: no cough and no dyspnea Cardiovascular: no chest pain, no palpitations and no edema Physical Exam Constitutional: WD/WN, vitals as above + overweight Eyes: PERRL, conjunctivae normal, anicteric sclerae ENMT: external ear and nose normal, oropharynx normal Neck: trachea midline, no thyromegaly Respiratory: normal respiratory effort, lungs clear to auscultation Cardiovascular: Rate/Rhythm: regular rhythm and + bradycardic Heart Sounds: normal S1 and normal S2; no murmur Extremities: normal capillary refill; no edema Gastrointestinal (Abdomen): normal bowel sounds, soft, nontender, no hepat osplenomegaly Musculoskeletal: no cyanosis or clubbing, extremities motor strength 5/5 Skin: no rashes, warm and dry Neurologic: patellar DTR's 2+ bilat, sensation intact and PERRL, EOMI, accommodation nl, no face palsy, no dysarthria Psychiatric: A+Ox3, euthymic affect Lymphatic: no cervical or axillary lymphadenopathy Results & Data Results & Data ([facility]) Vital Signs (Past 12 Hours) Vital Signs Temp Pulse Pulse Resp BP Pulse Ox 08/28/19 12:31 36.9 C 40 L 16 157/67 H 95 08/28/19 11:00 36.8 C 40 L 16 138/62 96 08/28/19 08:04 37 L 08/28/19 07:22 36.5 C 38 L 16 124/64 97 08/28/19 04:46 36.5 C 35 L 18 127/62 96 Laboratory Results Laboratory Results - last 24 hr 08/27/19 08/27/19 08/27/19 15:30 15:30 15:30 WBC 8.31 RBC 5.13 Hgb 14.8 Hct 43.3 MCV 84.4 MCH 28.8 MCHC 34.2 RDW Std Deviation 45.3 RDW Coeff of Hermila 14.6 H Plt Count 219 MPV 11.4 H Immature Gran % (Auto) 0.2 Neut % (Auto) 68.0 Lymph % (Auto) 22.4 Mccone % (Auto) 7.7 Eos % (Auto) 1.3 Baso % (Auto) 0.4 Neut # (Auto) 5.65 Lymph # (Auto) 1.86 Mccone # (Auto) 0.64 H Eos # (Auto) 0.11 Baso # (Auto) 0.03 Immature Gran # (Auto) 0.02 Sodium 140 Potassium 4.0 Chloride 108 H Carbon Dioxide 24 Anion Gap 8.0 BUN 19 H Creatinine 0.96 Est Cr Clr Drug Dosing 84.8 Est GFR ( Amer) 95.8 Est GFR (Non-Af Amer) 82.6 BUN/Creatinine Ratio 19.9 Glucose 103 H POC Glucose Estimat Average Glucose Hemoglobin A1c Calcium 9.2 Magnesium 2.5 H Total Bilirubin 0.3 AST 26 ALT 27 Alkaline Phosphatase 69 Troponin I < 0.015 Total Protein 7.9 Albumin 4.0 Globulin 3.9 Albumin/Globulin Ratio 1.0 TSH 2.550 Lyme Disease IgG Ab Cancelled Lyme Disease IgM Ab Cancelled 08/27/19 08/27/19 08/28/19 19:40 20:38 05:49 WBC RBC Hgb Hct MCV MCH MCHC RDW Std Deviation RDW Coeff of Hermila Plt Count MPV Immature Gran % (Auto) Neut % (Auto) Lymph % (Auto) Mccone % (Auto) Eos % (Auto) Baso % (Auto) Neut # (Auto) Lymph # (Auto) Mccone # (Auto) Eos # (Auto) Baso # (Auto) Immature Gran # (Auto) Sodium Potassium Chloride Carbon Dioxide Anion Gap BUN Creatinine Est Cr Clr Drug Dosing Est GFR ( Amer) Est GFR (Non-Af Amer) BUN/Creatinine Ratio Glucose POC Glucose 106 H Estimat Average Glucose 140 Hemoglobin A1c 6.5 H Calcium Magnesium Total Bilirubin AST ALT Alkaline Phosphatase Troponin I Total Protein Albumin Globulin Albumin/Globulin Ratio TSH Lyme Disease IgG Ab Negative Lyme Disease IgM Ab Negative 08/28/19 08/28/19 08/28/19 05:49 05:49 07:25 WBC 6.92 RBC 4.76 Hgb 13.7 L Hct 40.7 L MCV 85.5 MCH 28.8 MCHC 33.7 RDW Std Deviation 46.1 RDW Coeff of Hermila 14.7 H Plt Count 212 MPV 11.3 H Immature Gran % (Auto) 0.1 Neut % (Auto) 53.2 Lymph % (Auto) 34.8 Mccone % (Auto) 10.0 Eos % (Auto) 1.3 Baso % (Auto) 0.6 Neut # (Auto) 3.68 Lymph # (Auto) 2.41 Mccone # (Auto) 0.69 H Eos # (Auto) 0.09 Baso # (Auto) 0.04 Immature Gran # (Auto) 0.01 Sodium 143 Potassium 3.9 Chloride 111 H Carbon Dioxide 25 Anion Gap 7.0 BUN 19 H Creatinine 0.78 Est Cr Clr Drug Dosing 105.0 Est GFR ( Amer) 109.8 Est GFR (Non-Af Amer) 94.7 BUN/Creatinine Ratio 24.0 H Glucose 110 H POC Glucose 129 H Estimat Average Glucose Hemoglobin A1c Calcium 8.8 Magnesium Total Bilirubin AST ALT Alkaline Phosphatase Troponin I < 0.015 Total Protein Albumin Globulin Albumin/Globulin Ratio TSH Lyme Disease IgG Ab Lyme Disease IgM Ab 08/28/19 08/28/19 11:21 12:32 WBC RBC Hgb Hct MCV MCH MCHC RDW Std Deviation RDW Coeff of Hermila Plt Count MPV Immature Gran % (Auto) Neut % (Auto) Lymph % (Auto) Mccone % (Auto) Eos % (Auto) Baso % (Auto) Neut # (Auto) Lymph # (Auto) Mccone # (Auto) Eos # (Auto) Baso # (Auto) Immature Gran # (Auto) Sodium Potassium Chloride Carbon Dioxide Anion Gap BUN Creatinine Est Cr Clr Drug Dosing Est GFR ( Amer) Est GFR (Non-Af Amer) BUN/Creatinine Ratio Glucose POC Glucose 151 H 167 H Estimat Average Glucose Hemoglobin A1c Calcium Magnesium Total Bilirubin AST ALT Alkaline Phosphatase Troponin I Total Protein Albumin Globulin Albumin/Globulin Ratio TSH Lyme Disease IgG Ab Lyme Disease IgM Ab Medications Administered Current Inpatient Medications Acetaminophen (Tylenol) 650 mg PO Q4H PRN PRN Reason: Pain Stop: 09/27/19 13:03 Last Admin: 08/28/19 14:06 Dose: 650 mg Documented by: Albuterol (Ventolin Hfa) 2 puffs INH Q4H PRN PRN Reason: Dyspnea Stop: 09/26/19 22:14 Last Admin: 08/28/19 10:05 Dose: 2 puffs Documented by: Aspirin (Ecotrin Ectab) 81 mg PO HS BRENDA Stop: 09/26/19 20:59 Last Admin: 08/27/19 21:26 Dose: 81 mg Documented by: Cetirizine HCl (Zyrtec) 10 mg PO QDD BRENDA Stop: 09/27/19 16:29 Dextrose (Dextrose 50%) 25 - 50 ml IV UD PRN; Protocol PRN Reason: Hypoglycemia Protocol Stop: 09/26/19 20:12 Diclofenac Sodium (Voltaren 1% Top) 2 gm EXT DAILY PRN PRN Reason: Pain Stop: 09/26/19 20:12 Ezetimibe (Zetia) 10 mg PO HS BRENDA Stop: 09/26/19 20:59 Last Admin: 08/27/19 21:26 Dose: 10 mg Documented by: Famotidine (Pepcid) 20 mg PO DAILY BRENDA Stop: 09/27/19 08:59 Last Admin: 08/28/19 10:04 Dose: 20 mg Documented by: Fluticasone Propionate (Flonase) 2 sprays [facility] Stop: 09/27/19 08:59 Last Admin: 08/28/19 10:03 Dose: 2 sprays Documented by: Fluticasone Propionate (Flovent Hfa 110mch) 1 puffs INH BID BRENDA Stop: 09/27/19 08:59 Last Admin: 08/28/19 10:03 Dose: 1 puffs Documented by: Glucagon (Glucagen) 1 mg SQ UD PRN; Protocol PRN Reason: Hypoglycemia Protocol Stop: 09/26/19 20:12 Glucose (Dex4 Glucose) 4 - 8 tabs PO UD PRN; Protocol PRN Reason: Hypoglycemia Protocol Stop: 09/26/19 20:12 Glucose (Glucose 40%) 15 - 30 gm PO UD PRN; Protocol PRN Reason: Hypoglycemia Protocol Stop: 09/26/19 20:12 Guaifenesin (Mucinex) 1,200 mg PO QPM BRENDA Stop: 09/26/19 20:59 Last Admin: 08/27/19 21:27 Dose: 1,200 mg Documented by: Insulin Aspart (Novolog Flexpen) 0 units SC ACHS BRENDA Stop: 09/26/19 20:59 Last Admin: 08/28/19 11:50 Dose: 1 units Documented by: Miscellaneous (Carbohydrates For Hypoglycemia) 15 - 30 gm PO UD PRN PRN Reason: Hypoglycemia Protocol Stop: 09/26/19 20:12 Rosuvastatin Calcium (Crestor) 40 mg PO HS BRENDA Stop: 09/26/19 20:59 Last Admin: 08/27/19 21:27 Dose: 40 mg Documented by: Valsartan (Diovan) 160 mg PO HS BRENDA Stop: 09/26/19 20:59 Last Admin: 08/27/19 21:27 Dose: 160 mg Documented by: PG Care Time/CCT Total # of Minutes Spent Total Time Spent with Patient: Total time spent is greater than 50% in coordination of care (as documented) at patient's floor/unit and/or counseling patient: Coding Level of Care Code 16980 Subseq Hosp Care Lvl 2 Diagnoses AVB (atrioventricular block) I44.30 Symptomatic bradycardia R00.1 Dizzinesses R42 Morbid obesity E66.01 Severe obstructive sleep apnea G47.33 Coronary artery disease I25.10 Diabetes mellitus, type 2 E11.9 Asthma J45.909 Hyperlipidemia E78.5 Hypertension I10 Postnasal drip R09.82 GERD (gastroesophageal reflux disease) K21.9 DVT prophylaxis Z29.9
[2019-08-28] MEDS: CETIRIZINE HCL 10 MG TABLET PO SCH (17:33)
[2019-08-28] MEDS: ASPIRIN 81 MG ECTAB PO SCH (21:06)
[2019-08-28] MEDS: guaiFENesin 600 MG TABCR PO SCH (21:06)
[2019-08-28] MEDS: ROSUVASTATIN CALCIUM 20 MG TAB PO SCH (21:06)
[2019-08-28] MEDS: EZETIMIBE 10 MG TABLET PO SCH (21:06)
[2019-08-28] MEDS: VALSARTAN 80 MG TAB PO SCH (21:07)
[2019-08-29] MEDS: ALBUTEROL HFA 8 GM INHALER INH PRN (07:39)
[2019-08-29] MEDS: FLUTICASONE HFA 110MCG INHALER INH SCH ×2 (07:40→20:36)
[2019-08-29] MEDS: FAMOTIDINE 20 MG TAB PO SCH (07:40)
[2019-08-29] MEDS: FLUTICASONE PROPIONATE NA SPR 16 GM BTL NAE SCH (07:42)
[2019-08-29] MEDS: INSULIN ASPART 100 UNITS/ML 3 ML PEN SC SCH ×4 (07:43→20:35)
--- NOTE | 2019-08-29 08:44 | Cardiology Consultation ---
Date of Consultation August 29, 2019 Assessment & Plan (1) AVB (atrioventricular block): the etiology of the patient's heart block is unclear. Likely degenerative in nature. The fact that he has alternating bundle branch blocks with complete heart block at times suggest significant infra Hisian disease. It is unlikely that his dose of metoprolol plays a role in his current degree of conduction disease. Lyme titers were normal. He is symptomatic with the associated bradycardia. He would benefit from a permanent pacemaker due to symptomatic non reversible AV node dysfunction. Given his borderline LV function, and an anticipated pacing percentage greater than 40 percent, he Meets indications for biventricular device. His LV function is not low enough to qualify for prophylactic ICD. We discussed the risks benefits and alternatives to permanent pacemaker. I explained the procedure and showed him a sample device. we will plan on proceeding when and we have room availability. (2) Symptomatic bradycardia: Related to his heart block. I expect this to resolve with implantation of a permanent pacemaker. (3) Coronary artery disease: No current symptoms suggestive of acute coronary syndrome. He does have wall motion abnormalities on his echocardiogram by report. However, he has borderline normal LV systolic function and does not meet criteria for implantation of a an ICD as primary prophylaxis against sudden cardiac . History of Present Illness Reason for Consultation: Heart block Requesting Physician: Bienvenido Attending Physician: Regino Kramer DO History of Present Illness patient is a 63-year-old gentleman with remote history of myocardial infarction who presented to the emergency room for symptoms of dizziness and low heart rate. Patient states that upon awakening 2 days ago he had a brief episode of dizziness. He did not lose consciousness and seemed to regain normal sensation. He is able to perform his usual activities but later in the day developed a 2nd episode of dizziness. He is accustomed to checking his heart rate and blood pressure throughout the day. He did notice lower heart rates. In association with his symptoms he decided to proceed to emergency room for evaluation and was discovered to have complete heart block. He denies limiting dyspnea associated with his low heart rate. He has not had symptoms of significant chest pain. He did not experience syncope. He cannot recall any similar symptoms in the recent past. He is able perform mild to moderate activity without significant limitation. At the time of the interview the patient was feeling well. No current symptoms of dyspnea. No chest pain. No sense of palpitation. Allergies Allergy/AdvReac Type Severity Reaction Status Date / Time bee venom protein (honey bee) Allergy Severe ANAPHYLAXIS Verified 08/27/19 16:31 hornet venom Allergy Severe ANAPHYLAXIS Verified 08/27/19 16:31 No Known Drug Allergies Allergy Unknown ## MAJOR Verified 08/27/19 20:18 ALLERGY: WASP;HORNET; BEE ## pollen extracts Allergy ITCHY, Verified 08/27/19 16:32 WATERY EYES, SNEEZE Home Medications Home Medications Medication Instructions Recorded Confirmed Type albuterol sulfate 90 mcg/actuation 2 puffs INH Q4H PRN gm 12/24/18 08/27/19 History aerosol inhaler aspirin 81 mg tablet,delayed 81 mg PO HS tab 12/24/18 08/27/19 History release cetirizine 10 mg tablet 10 mg PO QDD tab 12/24/18 08/27/19 History diclofenac sodium 1 % topical gel 1 % TOP DAILY PRN gm 12/24/18 08/27/19 History epinephrine 0.3 mg/0.3 mL 0.3 mg IM ONCE PRN ea 12/24/18 08/27/19 History injection, auto-injector ezetimibe 10 mg tablet 10 mg PO HS tab 12/24/18 08/27/19 History fluticasone propionate 110 1 puffs INH BID gm 12/24/18 08/27/19 History mcg/actuation HFA aerosol inhaler fluticasone propionate 50 2 sprays INTNAS QAM ml 12/24/18 08/27/19 History mcg/actuation nasal spray,suspension lorazepam 0.5 mg tablet 0.5 mg PO DAILY PRN tab 12/24/18 08/27/19 History metformin 500 mg tablet 1,000 mg PO BID tab 12/24/18 08/27/19 History metoprolol succinate 100 mg 100 mg PO HS tab 12/24/18 08/27/19 History tablet,extended release 24 hr nitroglycerin 0.4 mg sublingual 0.4 mg SL Q5M PRN tab 12/24/18 08/27/19 History tablet rosuvastatin 40 mg tablet 40 mg PO HS tab 12/24/18 08/27/19 History valacyclovir 1 gram tablet 1,000 mg PO BID PRN 12/24/18 08/27/19 History valsartan 160 mg tablet 160 mg PO HS 12/24/18 08/27/19 History Mucinex 1,200 mg PO QPM 01/02/19 08/27/19 History Vascepa 2 g PO BID 01/02/19 08/27/19 History multivitamin 1 tab PO QAM 01/02/19 08/27/19 History mupirocin 1 applic TOPICAL QAM 01/02/19 08/27/19 History famotidine 20 mg tablet 20 mg PO DAILY tab 07/24/19 08/27/19 History alirocumab [Praluent Pen] 150 mg SUBCUT .[id number] 08/27/19 08/27/19 History Patient History Medical History Asthma inhaler daily/prn Coronary artery disease Diabetes mellitus, type 2 GERD (gastroesophageal reflux disease) Hyperlipidemia Hypertension Myocardial Infarction 04/1983--follows with Dr. Faria Osteoarthritis Surgical History History of appendectomy History of colonoscopy with polypectomy (2010) History of esophagogastroduodenoscopy (EGD) History of repair of right rotator cuff x2 History of wisdom tooth extraction Status post coronary angiogram 1983 Family History Father Family hx of colon cancer Other No family history of adverse response to anesthesia Social History Smoking Status: Never smoker Second Hand Exposure: No; Do You Dip or Chew Tobacco: No; Hx Alcohol Use: Yes Alcohol type: wine and hard liquor Hx Substance Use: No Preferred Language: Surinamese Communication Ability: Effective Desktop Publishing Specialist Required: No Beliefs That Will Affect Care: None marital status: Current Living Situation: Spouse Other Information That Helps Us Care for You: No Feels Safe at Home: Yes Safety Concerns: Feels Safe At This Time Review of Systems Review of Systems: All systems reviewed & are unremarkable except as noted in HPI & below Physical Exam Physical Exam: The patient is alert and oriented. Mood and affect appeared normal. He answered all questions appropriately. HEENT: Pupils are equal and reactive to light and accommodation. Extraocular movements are intact. The sclerae are anicteric. Neuro: Cranial nerves intact Neck: Patient's neck is supple. He has palpable carotid pulses bilaterally without bruits on auscultation. There is no evidence of jugular venous distention. The thyroid is not enlarged. Lungs: Clear to auscultation bilaterally. He has good air movement without use of accessory muscles. No rales wheezes or rhonchi. Cardiac: Heart demonstrates a regular rate and rhythm. Normal S1 and S2. No murmurs on examination. Pulses: The patient has palpable radial pulses bilaterally that are equal in intensity Extremities: There was no evidence of hypoperfusion. There is no cyanosis or clubbing. There is no edema. Skin: I did not appreciate any rashes on examination today. Results & Data ([facility]) Vital Signs (Past 12 Hours) Vital Signs Temp Pulse Resp BP Pulse Ox 08/29/19 07:13 36.9 C 40 L 18 118/58 L 94 08/29/19 03:26 36.7 C 37 L 16 134/54 L 93 08/28/19 23:17 36.5 C 35 L 16 128/56 L 97 Laboratory Results Abnormal Lab Results 08/28/19 08/28/19 08/28/19 11:21 12:32 16:13 POC Glucose 151 H 167 H 120 H 08/28/19 08/29/19 20:06 07:37 POC Glucose 122 H 111 H ECG Additional Comments: Initial EKG demonstrated complete heart block with alternating left and right bundle branch block 2nd EKG revealed 2-1 av conduction with left bundle branch block PG Care Time/CCT Total # of Minutes Spent Total Time Spent with Patient: Total time spent is greater than 50% in coordination of care (as documented) at patient's floor/unit and/or counseling patient: Coding Level of Care Code 28250 Initial Inpt Care Lvl 2 Diagnoses AVB (atrioventricular block) I44.30 Symptomatic bradycardia R00.1 Coronary artery disease I25.10
--- NOTE | 2019-08-29 12:42 | Electrocardiogram Report ---
Test Reason : Blood Pressure : / mmHG Vent. Rate : 039 BPM Atrial Rate : 092 BPM P-R Int : 000 ms QRS Dur : 132 ms QT Int : 508 ms P-R-T Axes : 052 -60 061 degrees QTc Int : 408 ms Sinus rhythm with complete heart block and Idioventricular rhythm with Premature ventricular complexe s or Fusion complexes Left axis deviation Non-specific intra-ventricular conduction block Minimal voltage criteria for LVH, may be normal variant T wave abnormality, consider anterior ischemia Abnormal ECG When compared with ECG of 28-AUG-2019 06:14, Confirmed by George Oliveira ([id number]) on 08/29/2019 12:42:19 PM Referred By: Adelso Mcdaniel Confirmed By:George Oliveira
--- NOTE | 2019-08-29 14:04 | Pre Anesthesia Assessment ---
Date of Service August 29, 2019 Pre Sedation Assessment Vital Signs Temp Pulse Pulse Resp BP Pulse Ox 08/29/19 11:00 36.5 C 35 L 19 132/59 L 94 08/29/19 09:06 39 L 08/29/19 07:13 36.9 C 40 L 18 118/58 L 94 08/29/19 03:26 36.7 C 37 L 16 134/54 L 93 08/28/19 23:17 36.5 C 35 L 16 128/56 L 97 08/28/19 19:03 37.0 C 41 L 23 132/58 L 96 08/28/19 15:25 36.8 C 40 L 22 119/53 L 93 08/28/19 15:00 39 L Cardiovascular + bradycardic Respiratory + respiratory effort normal Pre-Sedation Airway Assessment Smoking Status: Never smoker Hx Sleep Apnea: Yes Hx Difficult Intubation: No Short, Thick Neck: No Thyromental Distance: > or= 3.5 Finger Breadths Oral Cavity: + WNL Mallampati Class: III ASA: ASA3 Procedure Planning Contraindications for Sedation: none Current Medications Reviewed: Yes Notes The planned sedation has been discussed with the patient. Informed Consent was obtained. I have identified the patient, determined the appropriateness of sedation and have assessed the patient immediately prior to the procedure. All medicine(s) and interventions are by my order.
[2019-08-29] MEDS ORDERED: CEFAZOLIN 250 MG/ML 1 GM VIAL ONE (14:28)
[2019-08-29] MEDS ORDERED: MIDAZOLAM HCL 5 MG/ML 1 ML VIAL ONE (14:28)
[2019-08-29] MEDS ORDERED: fentaNYL citrate 100 MCG/2 ML VIAL ONE ×2 (14:28→15:15)
[2019-08-29] MEDS ORDERED: LIDOCAINE HCL 1% 20 ML VIAL ONE (14:40)
[2019-08-29] MEDS ORDERED: BACITRACIN OINT 0.9 GM PKT ONE (14:40)
[2019-08-29] MEDS ORDERED: BUPIVACAINE 0.5 % 5 MG/1 ML PF 10ML VIAL ONE ×3 (14:40→14:42)
[2019-08-29] MEDS ORDERED: BACITRACIN INJ 50,000 UNIT VIAL ONE (14:41)
--- NOTE | 2019-08-29 15:06 | Hospitalist Progress Note ---
Date of Service August 29, 2019 Assessment & Plan (1) AVB (atrioventricular block): periods of complete heart block with occasional bundle branch patterns suggests high degree of conduction disease, intra -Hisian disease Lyme titers negative plan for biventricular pacemaker this afternoon with Dr. Tavares will plan for CXR tomorrow, interrogation likely d/c to home tomorrow morning (2) Symptomatic bradycardia: as above okay as long as he is in bed pacemaker to fix issue (3) Dizzinesses: as above again, symptoms are fine as long as he does not exert himself treat with pacemaker (4) Morbid obesity: educated on weight loss (5) Severe obstructive sleep apnea: Continue home CPAP @ [facility] (6) Coronary artery disease: Remote history of [place] in 1983 - medical intervention alone ASA, valsartan, rosuvastatin Holding AV pradip blocking agents (metoprolol) as above (7) Diabetes mellitus, type 2: HbA1C is 6.5%, at goal BSG ACHS with insulin correction coverage only T2DM, heart healthy, low Na diet monitor for hypoglycemia, no episodes (8) Asthma: No current exacerbation Continue Flovent 1 puff BID, albuterol INH PRN (9) Hyperlipidemia: Continue rosuvastatin and ezetimibe Recently switched to Praluent but doubtful this caused his CHB as above but given correlation with 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 No indication to repeat acutely. (10) Hypertension: Continue valsartan Holding metoprolol XL as above fro CHB (11) Postnasal drip: Suspected because of his chronic cough as discussed with the patient. Continue Flonase nasal spray. (12) GERD (gastroesophageal reflux disease): Continue famotidine. Patient is less convinced this is the cause of his chronic cough. (13) DVT prophylaxis: heparin SC, hold in the morning Admission and Anticipated Discharge Date Admission Date: August 27, 2019 Subjective patient feeling fine this morning, no issues overnight plan for biventricular pacer this afternoon with Dr Chaitanya Tavares met with him this morning, answered all of his questions Review of Systems Review of Systems: All systems reviewed & are unremarkable except as noted in Subjective Physical Exam Constitutional: WD/WN, vitals as above + overweight Eyes: PERRL, conjunctivae normal, anicteric sclerae ENMT: external ear and nose normal, oropharynx normal Neck: trachea midline, no thyromegaly Respiratory: normal respiratory effort, lungs clear to auscultation Cardiovascular: Rate/Rhythm: regular rhythm and + bradycardic Heart Sounds: normal S1 and normal S2; no murmur Extremities: normal capillary refill; no edema Gastrointestinal (Abdomen): normal bowel sounds, soft, nontender, no hepatosplenomegaly Musculoskeletal: no cyanosis or clubbing, extremities motor strength 5/5 Skin: no rashes, warm and dry Neurologic: patellar DTR's 2+ bilat, sensation intact and PERRL, EOMI, accommodation nl, no face palsy, no dysarthria Psychiatric: A+Ox3, euthymic affect Lymphatic: no cervical or axillary lymphadenopathy Results & Data Results & Data ([facility]) Vital Signs (Past 12 Hours) Vital Signs Temp Pulse Pulse Resp BP Pulse Ox 08/29/19 14:19 37 L 18 167/67 H 97 08/29/19 11:00 36.5 C 35 L 19 132/59 L 94 08/29/19 09:06 39 L 08/29/19 07:13 36.9 C 40 L 18 118/58 L 94 08/29/19 03:26 36.7 C 37 L 16 134/54 L 93 Laboratory Results Laboratory Results - last 24 hr 08/28/19 08/28/19 08/29/19 16:13 20:06 07:37 POC Glucose 120 H 122 H 111 H 08/29/19 11:25 POC Glucose 118 H Medications Administered Current Inpatient Medications Acetaminophen (Tylenol) 650 mg PO Q4H PRN PRN Reason: Pain Stop: 09/27/19 13:03 Last Admin: 08/28/19 14:06 Dose: 650 mg Documented by: Albuterol (Ventolin Hfa) 2 puffs INH Q4H PRN PRN Reason: Dyspnea Stop: 09/26/19 22:14 Last Admin: 08/29/19 07:39 Dose: 2 puffs Documented by: Aspirin (Ecotrin Ectab) 81 mg PO HS BRENDA Stop: 09/26/19 20:59 Last Admin: 08/28/19 21:06 Dose: 81 mg Documented by: Cetirizine HCl (Zyrtec) 10 mg PO QDD BRENDA Stop: 09/27/19 16:29 Last Admin: 08/28/19 17:33 Dose: 10 mg Documented by: Dextrose (Dextrose 50%) 25 - 50 ml IV UD PRN; Protocol PRN Reason: Hypoglycemia Protocol Stop: 09/26/19 20:12 Diclofenac Sodium (Voltaren 1% Top) 2 gm EXT DAILY PRN PRN Reason: Pain Stop: 09/26/19 20:12 Ezetimibe (Zetia) 10 mg PO HS BRENDA Stop: 09/26/19 20:59 Last Admin: 08/28/19 21:06 Dose: 10 mg Documented by: Famotidine (Pepcid) 20 mg PO DAILY BRENDA Stop: 09/27/19 08:59 Last Admin: 08/29/19 07:40 Dose: 20 mg Documented by: Fluticasone Propionate (Flonase) 2 sprays [facility] Stop: 09/27/19 08:59 Last Admin: 08/29/19 07:42 Dose: 2 sprays Documented by: Fluticasone Propionate (Flovent Hfa 110mch) 1 puffs INH BID [facility] Stop: 09/27/19 08:59 Last Admin: 08/29/19 07:40 Dose: 1 puffs Documented by: Glucagon (Glucagen) 1 mg SQ UD PRN; Protocol PRN Reason: Hypoglycemia Protocol Stop: 09/26/19 20:12 Glucose (Dex4 Glucose) 4 - 8 tabs PO UD PRN; Protocol PRN Reason: Hypoglycemia Protocol Stop: 09/26/19 20:12 Glucose (Glucose 40%) 15 - 30 gm PO UD PRN; Protocol PRN Reason: Hypoglycemia Protocol Stop: 09/26/19 20:12 Guaifenesin (Mucinex) 1,200 mg PO QPM BRENDA Stop: 09/26/19 20:59 Last Admin: 08/28/19 21:06 Dose: 1,200 mg Documented by: Insulin Aspart (Novolog Flexpen) 0 units SC ACHS BRENDA Stop: 09/26/19 20:59 Last Admin: 08/29/19 12:01 Dose: Not Given Documented by: Miscellaneous (Carbohydrates For Hypoglycemia) 15 - 30 gm PO UD PRN PRN Reason: Hypoglycemia Protocol Stop: 09/26/19 20:12 Rosuvastatin Calcium (Crestor) 40 mg PO HS BRENDA Stop: 09/26/19 20:59 Last Admin: 08/28/19 21:06 Dose: 40 mg Documented by: Valsartan (Diovan) 160 mg PO HS BRENDA Stop: 09/26/19 20:59 Last Admin: 08/28/19 21:07 Dose: 160 mg Documented by: PG Care Time/CCT Total # of Minutes Spent Total Time Spent with Patient: Total time spent is greater than 50% in coordination of care (as documented) at patient's floor/unit and/or counseling patient: Coding Level of Care Code 20281 Subseq Hosp Care Lvl 2 Diagnoses AVB (atrioventricular block) I44.30 Symptomatic bradycardia R00.1 Dizzinesses R42 Morbid obesity E66.01 Severe obstructive sleep apnea G47.33 Coronary artery disease I25.10 Diabetes mellitus, type 2 E11.9 Asthma J45.909 Hyperlipidemia E78.5 Hypertension I10 Postnasal drip R09.82 GERD (gastroesophageal reflux disease) K21.9 DVT prophylaxis Z29.9
[2019-08-29] MEDS ORDERED: OXYCODONE HCL IR 5 MG TAB (IMMEDIATE RELEASE) PO PRN (16:08)
--- NOTE | 2019-08-29 16:08 | Electrophysiology Report ---
Date of Service August 29, 2019 Electrophysiology Procedure Electrophysiology Procedure Report Procedure performed: Implantation of biventricular pacemaker Staff project buyer: Suleiman Tavares MD Indication: The patient is a 63-year-old gentleman with a history of ischemic heart disease who presented with symptoms of dizziness and presyncope. He was discovered to have complete heart block. Patient is known to have borderline LV systolic function. He was felt to be a good candidate for biventricular pacemaker due to symptomatic nonreversible AV node dysfunction. Atrial lead was added as he is currently in sinus rhythm and wished to maintain AV synchrony. Left ventricular pacing lead was added due to the need for significant pacing percentage and borderline LV systolic function. Procedure in detail: The patient was informed of the risks benefits and alternatives to the intended procedure and she wished to proceed. He was taken to the electrophysiology suite in a fasting state. A preoperative antibiotic had been administered. The patient was monitored electrocardiographically throughout today's procedure and conscious sedation was administered per protocol. The left upper pectoral area is prepped and draped in usual sterile fashion. This area was anesthetized using subcutaneous administration of a xylocaine solution. An incision was made at this site and carried down to the prepectoralis fascia using sharp dissection. Electrocautery was also employed for dissection as well as for hemostasis. A device pocket was fashioned tissues above the pectoralis muscle. Subsequent to this maneuver the left axillary vein was accessed using modified Seldinger technique. Sheaths were placed over guidewires at this site and used to facilitate passage of the pacing leads to the respective chambers under fluoroscopic guidance. This included right atrial and right ventricular leads. Adequate sensing and threshold parameters were obtained prior to Active fixation of the leads to the endocardial surface. The proximal portion leads were then sutured the prepectoral fascia using nonabsorbable suture. The device pocket was irrigated with antibiotic solution. The leads were then attached to the device. The device and leads were then placed in the pocket and pocket was closed in 3 layers of absorbable suture. Steri-Strips and sterile dressing were applied. The device was tested noninvasively prior to conclusion the procedure. The patient tolerated procedure well there no immediate complications. Equipment used: New pulse generator: Shaper Hand MedRedapt. Model number: [id number] serial number [id number] Right atrial lead: Shaper Hand MedRedapt. Model number: 5076 serial number [id number] Right ventricular lead: Shaper Hand Medtronic. Model number: 5076 serial number [id number] Left ventricular pacing lead: Shaper Hand Medtronic model number: 4298 serial number [id number] Measured data: Right atrial lead: P waves measured 2.8 mV. Pacing threshold was 1 V at 0.4 ms with a pacing impedance of 589 ohms Right ventricular lead: R waves measured 16.6 mV. Pacing threshold was 1 V at 0.4 ms with a pacing impedance of 874 ohms Left ventricular lead: Pacing threshold 0.75 V at 0.4 ms with a pacing impedance of 475 ohms Impression: Successful implantation of biventricular pacemaker [facility] Electrophysiology codes Pacing Procedure 1: Pacin Insert/Replace Pacer A & V Procedure 2: Pacin BiV electrode w/Pacer / ICD implant, add on code PG Moderate Sedation Codes Moderate Sedation Codes Procedure 1: Sedation/Anesthesia: 41284 Mod Sedation by the same physician;Init15 Min Child Age 5 & Up Procedure 2: Sedation/Anesthesia: 47344 Mod Sedation by the same physician; Ea [id number] Minutes
--- NOTE | 2019-08-29 16:11 | Post Anesthesia Assessment ---
Date of Service August 29, 2019 Post Sedation Assessment Vital Signs Temp Pulse Pulse Resp BP Pulse Ox 08/29/19 16:05 86 18 167/67 H 97 08/29/19 14:19 37 L 18 167/67 H 97 08/29/19 11:00 36.5 C 35 L 19 132/59 L 94 08/29/19 09:06 39 L 08/29/19 07:13 36.9 C 40 L 18 118/58 L 94 08/29/19 03:26 36.7 C 37 L 16 134/54 L 93 08/28/19 23:17 36.5 C 35 L 16 128/56 L 97 08/28/19 19:03 37.0 C 41 L 23 132/58 L 96 Recovery Score Activity: Moves 4 extremities Respiration: Deep Breath/Cough Circulation: +/-20% PreAnes Value Consciousness: Fully Awake Oxygen Saturation: > 92% On Room Air Post Anesthesia Score: 10 Discharge Sedation Level of Care: Fast Track Phase II Post Sedation Plan On clinical assessment, the patient appears to have tolerated the sedation without complications. Patient is recovering as anticipated. Patient will continue to be monitored by nursing and may be discharged when sedation discharge criteria are met per below protocol. Upon Completions of procedure up to 15 minutes continue every 5 minute vital signs and the P.A.R. score; then discharge to a Phase I or Fast Track to Phase II per the following guidelines: * Discharge Patient to appropriate Phase II area if PAR is 8 or greater or return to pre- procedure baseline. The post - procedure orders will be as directed. * If PAR score is less than 8 or not return to pre-procedure baseline then patient will follow Phase I monitoring till PAR is reached for Phase II. The Phase I may be done in procedure room or may call to secure a Phase I area. * If naloxone or flumazenil are used for reversal, hold in Phase I for continued monitoring from when last reversal dose was given for a minimum of 60 minutes or longer pending the nurse and/or physician discretion of patient condition before discharge to Phase II. Please call the Sedation Physician to re-evaluate and complete post-note for discharge to Phase II area. Do NOT discharge from procedure sedation or Phase 1 until post- sedation evaluation note is complete by procedure /sedation MD Sedation Discharge Instructions to be given to the patient at discharge to home.
[2019-08-29] MEDS: CETIRIZINE HCL 10 MG TABLET PO SCH (17:50)
[2019-08-29] MEDS: VALSARTAN 80 MG TAB PO SCH (20:34)
[2019-08-29] MEDS: ROSUVASTATIN CALCIUM 20 MG TAB PO SCH (20:34)
[2019-08-29] MEDS: guaiFENesin 600 MG TABCR PO SCH (20:35)
[2019-08-29] MEDS: EZETIMIBE 10 MG TABLET PO SCH (20:35)
[2019-08-29] MEDS: ASPIRIN 81 MG ECTAB PO SCH (20:35)
[2019-08-29] MEDS: CEFAZOLIN 2000MG 2,000 MG/15 ML SYR IV SCH (20:38)
[2019-08-30] MEDS: CEFAZOLIN 2000MG 2,000 MG/15 ML SYR IV SCH (05:59)
[2019-08-30] MEDS: INSULIN ASPART 100 UNITS/ML 3 ML PEN SC SCH (07:48)
--- NOTE | 2019-08-30 08:10 | XRay Report ---
XR chest 2V PA/lateral CLINICAL HISTORY: Pacemaker insertion. COMPARISON STUDY: Chest radiograph August 27, 2019. Chest CT April 05, 2017. FINDINGS: There is no pneumothorax following placement of a left biventricular pacer. Lead tips proje ct over the right atrial appendage and right ventricle. A third lead likely extends through the coron ankur sinus. Cardiomediastinal silhouette is stable. No evidence for pulmonary edema. There is no conso lidation. IMPRESSION: No pneumothorax following placement of a left subclavian biventricular pacemaker. ACT 112: Negative or not required by law. Electronically signed by: Porfirio Kaiser M.D. 08/30/2019 8:08 AM
[2019-08-30] MEDS: ALBUTEROL HFA 8 GM INHALER INH PRN (08:50)
[2019-08-30] MEDS: FLUTICASONE PROPIONATE NA SPR 16 GM BTL NAE SCH (08:50)
[2019-08-30] MEDS: FAMOTIDINE 20 MG TAB PO SCH (08:51)
[2019-08-30] MEDS: FLUTICASONE HFA 110MCG INHALER INH SCH (08:51)
--- NOTE | 2019-08-30 09:23 | Cardiology Progress Note ---
Date of Service August 30, 2019 Assessment & Plan (1) AVB (atrioventricular block): He appears of undergone successful implantation of a biventricular pacemaker. No evident complication. He does have an element of diaphragmatic stimulation with deep inspiration. Likely due to proximity of the lead to the phrenic nerve. As this only occurs with deep inspiration, I did not feel obligated to modify the pacing parameters currently. Think there may be some settling of the lead over the next few weeks. If this becomes more bothersome her certainly many options for reprogramming. No concerns regarding restarting metoprolol. Routine outpatient follow up for wound check in 1 week keep wound dry in Steri-Strips intact for 1 week or until follow-up in the outpatient setting No lifting left arm above the shoulder behind the neck for 6 weeks. Subjective This morning patient claims to be feeling well. He does have some discomfort at the implant site when he moves the arm. This appears to be fairly mild in severity. He also did notice the device "pacing" his heart when he took a deep inspiration with his inhaler earlier this morning. No symptoms at other times. Review of Systems Review of Systems: For HPI Physical Exam Physical Exam: wound appears to be healing well. No drainage. No erythema. No ecchymosis. No hematoma. Results & Data Vital Signs (Past 12 Hours) Vital Signs Temp Pulse Pulse Resp BP Pulse Ox 08/30/19 08:08 36.8 C 66 18 116/60 97 08/30/19 03:43 36.9 C 67 17 106/64 97 08/30/19 00:00 72 08/29/19 23:14 36.4 C L 73 16 119/74 97 Diagnostic Findings I reviewed the source image of his x-ray. Good lead placement without ev idence of pneumothorax device interrogation was performed this morning which revealed good sensing and threshold parameters in all 3 leads. Normal device function.
--- NOTE | 2019-08-30 09:43 | Discharge Summary ---
Date of Service August 30, 2019 Admission HPI Per Admitting Provider Jose Luis Kunz is a 63 year old male with remote history of myocardial infarction who presents to the ER with dizziness. He first noticed becoming lightheaded and dizzy on standing up yesterday morning. Associated tingling all over and feeling flushed. He does note a chronic cough although this is been no worse than usual. He denies any chest pain, shortness of breath, orthopnea, PND, claudication, fevers or chills. No known COVID-19 exposure. After this occurred he sat down for short amount of time and when he next to the he was fine. 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 Usually has good exercise tolerance and can walk a mile without stopping. Measures HR usually 3-4 times/day - only bradycardia episodes recorded started today. BP twice a day -recent measurements have been stable. Only new medication was switching from Repatha to Praluent which he started on Tuesday - this was due to insurance reasons. He was recently in to see his hydraulic blocker and had transthoracic echocardiogram performed 1 week previously showing LVEF 50%. Basal inferoseptal, basal inferior, basal to mid inferior lateral pearl are thin, akinetic and scarred. In the ER he was noted to be in complete heart block. He is currently asymptomatic at rest with external pacing pads in place but not requiring pacing at this time. He usually takes metoprolol succinate 100 mg daily. Last dose was last night. Principal Diagnosis Complete heart block Discharge Exam Constitutional WD/WN, vitals as above + overweight Eyes PERRL, conjunctivae normal, anicteric sclerae ENMT external ear and nose normal, oropharynx normal Neck trachea midline, no thyromegaly Respiratory normal respiratory effort, lungs clear to auscultation Cardiovascular Rate/Rhythm: regular rate (paced in 80's) and regular rhythm Heart Sounds: normal S1 and normal S2; no murmur Extremities: normal capillary refill; no edema Gastrointestinal (Abdomen) normal bowel sounds, soft, nontender, no hepatosplenomegaly Musculoskeletal no cyanosis or clubbing, extremities motor strength 5/5 Skin no rashes, warm and dry Neurologic patellar DTR's 2+ bilat, sensation intact and PERRL, EOMI, accommodation nl, no face palsy, no dysarthria Psychiatric A+Ox3, euthymic affect Lymphatic no cervical or axillary lymphadenopathy Discharge Data Allergies Allergy/AdvReac Type Severity Reaction Status Date / Time bee venom protein (honey bee) Allergy Severe ANAPHYLAXIS Verified 08/27/19 16:31 hornet venom Allergy Severe ANAPHYLAXIS Verified 08/27/19 16:31 No Known Drug Allergies Allergy Unknown ## MAJOR Verified 08/27/19 20:18 ALLERGY: WASP;HORNET; BEE ## pollen extracts Allergy ITCHY, Verified 08/27/19 16:32 WATERY EYES, SNEEZE Consultations 08/27/19 16:16 ED Decision to Admit Stat 08/27/19 20:13 Consult Cardiology Routine 08/28/19 09:50 Consult Cardiac Electrophysiology Routine Procedures Performed Operation Date: 08/29/19 13:00 Actual Procedures p Pacer with A/V Leads (Dual) - Dar Tavares MD s Lead LV (No Priopr Implant) - Dar Tavares MD Ordered Studies 08/29/19 06:45 EP Lab Images for PACS ONCE Hospital Course (1) AVB (atrioventricular block): periods of complete heart block with occasional bundle branch patterns suggests high degree of conduction disease, intra -Hisian disease Lyme titers negative biventricular pacemaker placed by Dr. Chaitanya garcia for discharge, aware of limb restriction for left arm wound follow up with cardiology in clinic next week can resume Metoprolol now that pacemaker in place (2) Symptomatic bradycardia: as above okay as long as he is in bed pacemaker now in place, paced in 80's today (3) Dizzinesses: as above again, symptoms are fine as long as he does not exert himself treated with pacemaker (4) Morbid obesity: educated on weight loss (5) Severe obstructive sleep apnea: Continue home CPAP @ [facility] (6) Coronary artery disease: Remote history of [place] in 1983 - medical intervention alone ASA, valsartan, rosuvastatin initially held metoprolol, now safe to resume (7) Diabetes mellitus, type 2: HbA1C is 6.5%, at goal BSG ACHS with insulin correction coverage only T2DM, heart healthy, low Na diet monitor for hypoglycemia, no episodes (8) Asthma: No current exacerbation Continue Flovent 1 puff BID, albuterol INH PRN (9) Hyperlipidemia: Continue rosuvastatin and ezetimibe Recently switched to Praluent but doubtful this caused his CHB as above but given correlation with defer continuation to his usual hydraulic blocker Has lipid panel as outpatient. No indication to repeat acutely. (10) Hypertension: Continue valsartan Holding metoprolol XL as above fro CHB (11) Postnasal drip: Suspected because of his chronic cough as discussed with the patient. Continue Flonase nasal spray. (12) GERD (gastroesophageal reflux disease): Continue famotidine. Patient is less convinced this is the cause of his chronic cough. (13) DVT prophylaxis: heparin SC, hold in the morning Total Time Total Time Spent Total Time Spent (In Minutes): 31 Total Time Includes: Examination of the Patient, Discharge Planning, Medication Reconciliation and Communication With Other Providers (Dr. Tavares) Discharge Plan Discharge Items Patient Disposition: Home - Self-Care Reason For Visit: BRADYCARDIA,HIGH DEGREE AV BLOCK Discharge Diagnosis: Complete heart block Condition on Discharge: Good Goals: follow up with Dr. Tavares follow limb movement restrictions Activity: Per Instructions section Bathing: Keep incision dry Driving/Machine Use: No limitations Weightbearing: Full weightbearing Non-emergency contact: Primary Care Provider and Forensic Toxicologist Call non-emergency contact if: you have any medication questions and your symptoms worsen Follow-up/Referrals: Dar Tavares MD [Physician] - (next week) Adelso Mcdaniel MD [Primary Care Provider] - 09/05/19 1:30 pm (Please follow up with Dr. Mcdaniel at [facility] on Tuesday09/05/2019 at 1:30 pm. Please arrive to the office at 1:15 pm for your appointment. If you are unable to keep this appointment, please call the office at [phone] to reschedule. ) Diet: Carb Consistent or DM2 and Heart Healthy Addtl Attending Provider Instructions: Medications: - OXYCODONE: use as needed for pain No other medication changes, continue the Metoprolol as you were previously taking as you now have pacemaker Complete heart block: treated with biventricular pacemaker follow the limb restrictions as below will follow up next week with Dr. Tavares, cardiology, for wound check you can follow up with Dr. Faria as previously scheduled, no need for new appointment Addtl Car Driver Provider Instructions: Routine outpatient follow up for wound check in 1 week keep wound dry in Steri-Strips intact for 1 week or until follow-up in the outpatient setting No lifting left arm above the shoulder behind the neck for 6 weeks. Pending Studies at Discharge: No Stand-Alone Forms: My [facility], Smoking Cessation Medications and DC Order Prescriptions: New oxycodone 5 mg Tablet 5 mg PO Q4 PRN (Reason: pain) 7 Days Qty: 10 RF: 0 Continued aspirin 81 mg tablet,delayed release (DR/EC) 81 mg PO HS RF: 0 cetirizine 10 mg tablet 10 mg PO QDD RF: 0 rosuvastatin 40 mg tablet 40 mg PO HS RF: 0 diclofenac sodium 1 % gel 1 % TOP DAILY PRN (Reason: Pain) RF: 0 valsartan 160 mg tablet 160 mg PO HS RF: 0 epinephrine 0.3 mg/0.3 mL auto-injector 0.3 mg IM ONCE PRN (Reason: Anaphylaxis) RF: 0 ezetimibe 10 mg tablet 10 mg PO HS RF: 0 fluticasone propionate 50 mcg/actuation spray,suspension 2 sprays INTNAS QAM RF: 0 fluticasone propionate 110 mcg/actuation HFA aerosol inhaler 1 puffs INH BID RF: 0 lorazepam 0.5 mg tablet 0.5 mg PO DAILY PRN (Reason: Anxiety) RF: 0 nitroglycerin 0.4 mg tablet, sublingual 0.4 mg SL Q5M PRN (Reason: Angina) RF: 0 metoprolol succinate 100 mg tablet extended release 24 hr 100 mg PO HS RF: 0 metformin 500 mg tablet 1,000 mg PO BID RF: 0 albuterol sulfate 90 mcg/actuation HFA aerosol inhaler 2 puffs INH Q4H PRN (Reason: Shortness Of Breath) RF: 0 valacyclovir 1 gram tablet 1,000 mg PO BID PRN (Reason: Cold Sores) RF: 0 famotidine [Pepcid AC] 20 mg tablet 20 mg PO DAILY RF: 0 multivitamin Tablet 1 tab PO QAM RF: 0 mupirocin 2 % Ointment 1 applic TOPICAL QAM RF: 0 Mucinex 1,200 mg Tablet Extended Release 12hr 1,200 mg PO QPM RF: 0 Vascepa 1 gram Capsule 2 g PO BID RF: 0 Praluent Pen 150 mg/mL Pen Injector 150 mg SUBCUT .[id number] RF: 0 Discharge Orders: Discharge Order (Routine); Ordered 08/30/19 Ordered By: Regino Braxton/Other Patient Handouts: High Blood Sugar (Hyperglycemia), Managing Type 2 Diabetes, Diabetes: Meal Planning Admission Data Admit Date/Time: 08/27/19 19:00 Attending Provider: Regino Kramer Admit Provider: Steffen Benjamin Primary Care Provider: Adelso Mcdaniel Other Providers: Steffen Benjamin ; Elliot Faria ; Dar Tavares Other Interventions: Discharge Summary Assessment (RN) Last Done: 08/30/19 10:02 DC Date/Time DO NOT enter until pt leaves facility: 08/30/19 10:45 Coding Level of Care Code D/C Day Management >30 mins Diagnoses AVB (atrioventricular block) I44.30 Symptomatic bradycardia R00.1 Dizzinesses R42 Morbid obesity E66.01 Severe obstructive sleep apnea G47.33 Coronary artery disease I25.10 Diabetes mellitus, type 2 E11.9 Asthma J45.909 Hyperlipidemia E78.5 Hypertension I10 Postnasal drip R09.82 GERD (gastroesophageal reflux disease) K21.9 DVT prophylaxis Z29.9
== END 2019-08-30 10:45 | disposition home or self-care (01) | DRG 261 ==
LOC: ED 13:21 → SUATTDRO 19:00 → 2S 19:00